=== PATIENT | male | born 1975 | race Two or more races ===

== ENCOUNTER 2020-07-11 15:00 | Emergency (ER) | payer MEDICAID, OTHER ==
[~2020-07-11] VITALS: Ht 195.6 cm; Wt 113.4 kg
[2020-07-11] MEDS ORDERED: ONDANSETRON HCL 4 MG/2 ML VIAL IV ONE (16:30)
[2020-07-11] MEDS ORDERED: ACETAMINOPHEN 325 MG TAB PO ONE (16:30)
[2020-07-11] MEDS ORDERED: SODIUM CHLORIDE 0.9% 1,000 ML IV ONE (16:30)
[2020-07-11] MEDS ORDERED: PANTOPRAZOLE 40 MG/10 ML VIAL INJ IV ONE (16:30)
[2020-07-11 17:21] LABS: Basophils # (auto) 0 10 ^3/uL (0-0.2); Basophils % (auto) 0.3 % (0.0-2.0); Eosinophils # (auto) 0 10 ^3/uL (0-0.8); Eosinophils % (auto) 0.2 % (0.0-7.0); Hemoglobin 18.3 g/dL (13.5-17.5); Lymphocytes # (auto) 1.4 10 ^3/uL (0.4-5.4); Lymphocytes % (auto) 27.6 % (10.0-50.0); Mean Corpuscular Hemoglobin 31.5 pg (28.0-32.0); Mean Corpuscular Hgb Conc. 35.2 g/dL (32.0-36.0); Mean Corpuscular Volume 89.4 fL (80.0-100.0); Monocytes # (auto) 0.5 10 ^3/uL (0-1.3); Monocytes % (auto) 9.8 % (0.0-12.0); Neutrophils # (auto) 3.2 10 ^3/uL (1.6-8.6); Neutrophils % (auto) 62.1 % (37.0-80.0); Nucleated Red Blood Cells % 0.3 %; Platelet Count (auto) 169 10^3/uL (140-450); Red Blood Cells 5.82 10^6/uL (4.5-5.90); Red Cell Distribution Width 12.7 % (11.8-14.3); White Blood Cell 5.2 10^3/uL (4.4-10.8)
[2020-07-11 17:34] LABS: Albumin 3.7 g/dL (3.4-5.0); Calcium 8.7 mg/dL (8.5-10.1); Magnesium 2.2 mg/dL (1.6-2.6)
[2020-07-11 17:35] LABS: BUN/Creatinine Ratio 7.1
[2020-07-11 17:39] LABS: Bilirubin, Total 0.6 mg/dL (0.2-1.0); Total Protein 7.7 g/dL (6.4-8.2)
[2020-07-11 18:27] LABS: Urine Bacteria NONE SEEN /hpf (None Seen); Urine Blood Negative /uL (Negative); Urine Specific Gravity 1.004 (1.001-1.035); Urine WBC 2 /hpf (0 - 3)
[2020-07-11] MEDS ORDERED: MORPHINE SULF INJ 2 MG/ML SYRINGE 1ML IV ONE (18:30)
[2020-07-11 18:37] LABS: Alcohol, Urine < 3.0 mg/dL (0-10); Amphetamine Screen, Urine POSITIVE (NEGATIVE); Barbiturate Scree,Urine NEGATIVE (NEGATIVE); Benzodiazephine Screen, Urine NEGATIVE (NEGATIVE); Cannabinoid Screen, Urine NEGATIVE (NEGATIVE); Cocaine Screen, Urine NEGATIVE (NEGATIVE); Phencyclidine Screen, Urine NEGATIVE (NEGATIVE)
[2020-07-11 18:44] LABS: Opiate Scree,Urine NEGATIVE (NEGATIVE)
[2020-07-11] MEDS ORDERED: DexAMETHasone 4 MG TAB PO ONE (19:30)
[2020-07-11] MEDS ORDERED: DOXYCYCLINE 100 MG TAB/CAP PO ONE (19:30)
[2020-07-11] MEDS ORDERED: ASCORBIC ACID 500 MG TAB PO ONE (19:30)
[2020-07-11 22:28] VITALS: BP 136/97
== END 2020-07-11 22:27 | disposition home or self-care (01) ==
LOC: ER 15:00
DX: U07.1 COVID-19 (principal); R03.0 Elevated blood-pressure reading, without diagnosis of hypertension; E86.0 Dehydration; F12.10 Cannabis abuse, uncomplicated; K76.0 Fatty (change of) liver, not elsewhere classified; F15.10 Other stimulant abuse, uncomplicated
CPT/HCPCS: 36415; 71045; 74176; 80053; 80307; 81001; 82150; 83690; 83735; 85025; 87426; 96361; 96374; 96375; 99285; C9113; J2270; J2405; J7030

== ENCOUNTER 2020-07-23 16:19 | Emergency (ER) | payer SELFPAY ==
[~2020-07-23] VITALS: Ht 195.6 cm; Wt 127.0 kg
[2020-07-23 16:31] VITALS: BP 128/84
== END 2020-07-23 17:10 | disposition left against medical advice (07) ==
LOC: ER 16:19
DX: U07.1 COVID-19 (principal); J12.89 Other viral pneumonia
CPT/HCPCS: 71045

== ENCOUNTER 2020-07-25 08:03 | Emergency (ER) | payer SELFPAY ==
[~2020-07-25] VITALS: Ht 195.6 cm; Wt 127.0 kg
[2020-07-25 08:21] VITALS: BP 147/99
== END 2020-07-25 13:31 | disposition left against medical advice (07) ==
LOC: ER 08:03
DX: R06.02 Shortness of breath (principal); Z53.21 Procedure and treatment not carried out due to patient leaving prior to being seen by health care provider
CPT/HCPCS: 71045

== ENCOUNTER 2021-01-03 21:39 | Emergency (ER) | payer MEDICAID, SELFPAY ==
[~2021-01-03] VITALS: Ht 195.6 cm; Wt 124.7 kg
[2021-01-03 22:20] LABS: Basophils # (auto) 0 10 ^3/uL (0-0.2); Basophils % (auto) 0.5 % (0.0-2.0); Eosinophils # (auto) 0.1 10 ^3/uL (0-0.8); Eosinophils % (auto) 2.4 % (0.0-7.0); Hematocrit 46.7 % (41.0-53.0); Hemoglobin 16.5 g/dL (13.5-17.5); Lymphocytes # (auto) 1.8 10 ^3/uL (0.4-5.4); Mean Corpuscular Hemoglobin 31.5 pg (28.0-32.0); Mean Corpuscular Hgb Conc. 35.3 g/dL (32.0-36.0); Monocytes # (auto) 0.5 10 ^3/uL (0-1.3); Monocytes % (auto) 8.3 % (0.0-12.0); Neutrophils # (auto) 3.5 10 ^3/uL (1.6-8.6); Neutrophils % (auto) 58.8 % (37.0-80.0); Nucleated Red Blood Cells % 0.3 %; Platelet Count (auto) 212 10^3/uL (140-450); Red Blood Cells 5.25 10^6/uL (4.5-5.90); Red Cell Distribution Width 13.6 % (11.8-14.3); White Blood Cell 5.9 10^3/uL (4.4-10.8)
[2021-01-03 22:37] LABS: Albumin 3.7 g/dL (3.4-5.0); Calcium 8.2 mg/dL (8.5-10.1)
[2021-01-03 22:42] LABS: BUN/Creatinine Ratio 14.3; Bilirubin, Total 0.4 mg/dL (0.2-1.0); Total Protein 7.2 g/dL (6.4-8.2)
[2021-01-03 22:46] LABS: INR 0.97 (0.9-1.15); Partial Thromboplastin Time 25.7 sec (23.0-31.2)
[2021-01-04 01:53] VITALS: BP 131/90
== END 2021-01-04 03:21 | disposition home or self-care (01) ==
LOC: ER 21:43
DX: S16.1XXA Strain of muscle, fascia and tendon at neck level, initial encounter (principal); R51.9 Headache, unspecified; F12.10 Cannabis abuse, uncomplicated; X58.XXXA Exposure to other specified factors, initial encounter; Y93.89 Activity, other specified; Y92.89 Other specified places as the place of occurrence of the external cause; Y99.8 Other external cause status
CPT/HCPCS: 36415; 70450; 80053; 83880; 85025; 85610; 85730; 93005

== ENCOUNTER 2022-07-12 18:52 | Emergency (ER) | payer SELFPAY ==
[~2022-07-12] VITALS: Ht 195.6 cm; Wt 127.3 kg
[2022-07-12 19:07] VITALS: BP 137/89
== END 2022-07-12 22:59 | disposition left against medical advice (07) ==
LOC: ER 18:52
DX: S51.812A Laceration without foreign body of left forearm, initial encounter (principal); Z53.21 Procedure and treatment not carried out due to patient leaving prior to being seen by health care provider; W11.XXXA Fall on and from ladder, initial encounter; Y93.89 Activity, other specified; Y92.89 Other specified places as the place of occurrence of the external cause; Y99.8 Other external cause status

== ENCOUNTER 2024-12-02 02:55 | Emergency (ER) | payer MEDICAID ==
[~2024-12-02] VITALS: Ht 195.6 cm; Wt 125.0 kg
--- NOTE | 2024-12-02 03:13 | ED.PDOC ---
History of Present Illness HPI Comments 48-year-old male who came to ER for back pains. Patient states he has been having lower back pains radiating down his right lower leg for the past month. Patient has taken pain medications, Xanax and alcohol with his offered no relief of the pain Chief Complaint: Back Pain Time Seen by MD: 03:13 Primary Care Provider: UNKNOWN Reviewed Notes: Filling Layer Up Notes Allergies: Coded Allergies: NO KNOWN ALLERGIES (Unverified , 07/11/20) Information Source: Patient Mode of Arrival: EMS Severity: Moderate Timing: Weeks Duration: Intermittent Past Medical History PAST MEDICAL HISTORY: Denies Surgical History: Denies all surgeries Family History Family History: Reviewed,noncontributory to illness Social History Smoker: Non-Smoker Alcohol: Occasionally Drugs: Marijuana Lives In: Home Constitutional: denies: chills, diaphoresis, fatigue, fever, malaise, sweats, weakness, others EENTM: denies: blurred vision, double vision, ear bleeding, ear discharge, ear drainage, ear pain, ear ringing, eye pain, eye redness, hearing loss, mouth pain, mouth swelling, nasal discharge, nose bleeding, nose congestion, nose pain, photophobia, tearing, throat pain, throat swelling, voice changes, others Respiratory: denies: cough, hemoptysis, orthopnea, SOB at rest, shortness of breath, SOB with excertion, stridor, wheezing, others Cardiovascular: denies: chest pain, dizzy spells, diaphoresis, Dyspnea on exertion, edema, irregular heart beat, left arm pain, lightheadedness, palpitations, PND, syncope, others Gastrointestinal: denies: abdomen distended, abdominal pain, blood streaked bowels, constipated, diarrhea, dysphagia, difficulty swallowing, hematemesis, melena, nausea, poor appetite, poor fluid intake, rectal bleeding, rectal pain, vomiting, others Genitourinary: denies: burning, dysuria, flank pain, frequency, hematuria, incontinence, penile discharge, penile sore, pain, testicle pain, testicle swelling, urgency, others Neurological: denies: dizziness, fainting, headache, left sided numbness, left sided weakness, numbness, paresthesia, pre-existing deficit, right sided numbness, right sided weakness, seizure, speech problems, tingling, tremors, weakness, others Musculoskeletal: reports: back pain, muscle pain (Right leg pain); denies: gout, joint pain, joint swelling, muscle stiffness, neck pain, others Integumetry: denies: bruises, change in color, change in hair/nails, dryness, laceration, lesions, lumps, rash, wounds, others Allergic/Immunocompromised: denies: Difficulty Healing, Frequent Infections, Hives, Itching, others Hematologic/Lymphatic: denies: anemia, blood clots, easy bleeding, easy bruising, swollen glands, others Endocrine: denies: excessive hunger, excessive sweating, excessive thirst, excessive urination, flushing, intolerance to cold, intolerance to heat, unexplained weight gain, unexplained weight loss, others Psychiatric: denies: anxiety, bipolar disorder, depression, hopeless, panic disorder, schizophrenia, sleepless, suicidal, others Physical Exam General Appearance: No Apparent Distress, Normal HEENT: Normal ENT Inspection, Pharynx Normal, TMs Normal Neck: Full Range of Motion, Non-Tender, Normal, Normal Inspection Respiratory: Chest Non-Tender, Lungs Clear, No Accessory Muscle Use, No Respiratory Distress, Normal Breath Sounds Cardiovascular: No Edema, No JVD, No Murmur, No Gallop, Normal Peripheral Pulses, Regular Rate/Rhythm Breast Exam: Deferred Gastrointestinal: No Organomegaly, Non Tender, No Pulsatile Mass, Normal Bowel Sounds, Soft Genitalia: Deferred Pelvic: Deferred Rectal: Deferred Extremities: No calf tenderness, Normal capillary refill, Normal inspection, Normal range of motion, Non-tender, No pedal edema Musculoskeletal : Apperance: Normal Neurologic: Alert, angiography technologist II-XII nml as Tested, No Motor Deficits, Normal Affect, Normal Mood, No Sensory Deficits Cerebellar Function: Normal Reflexes: Normal Skin: Dry, Normal Color, Warm Lymphatic: No Adenopathy Was a procedure done? Was a procedure done?: No Differential Dx Considerations may include: Musculoskeletal pain, sciatica X-Ray, Labs, Meds, VS Vital Signs Date Time Temp Pulse Resp B/P (MAP) Pulse Ox O2 Delivery O2 Flow Rate FiO2 12/02/24 04:00 97.7 102 22 135/89 (104) 94 97.7 12/02/24 04:00 102 Room Air* 0 21 12/02/24 03:06 97.7 73 22 140/102 (115) 98 Lab Test 12/02/24 03:39 Range/Units White Blood Count 8.2 4.4-10.8 10^3/uL Red Blood Count 5.38 4.5-5.90 10^6/uL Hemoglobin 16.0 13.5-17.5 g/dL Hematocrit 48.1 41.0-53.0 % Mean Corpuscular Volume 89.3 80.0-100.0 fL Mean Corpuscular Hemoglobin 29.8 28.0-32.0 pg Mean Corpuscular Hemoglobin Concent 33.3 32.0-36.0 g/dL Red Cell Distribution Width 13.2 11.8-14.3 % Platelet Count 293 140-450 10^3/uL Mean Platelet Volume 8.1 6.9-10.8 fL Neutrophils (%) (Auto) 63.1 37.0-80.0 % Lymphocytes (%) (Auto) 26.5 10.0-50.0 % Monocytes (%) (Auto) 7.7 0.0-12.0 % Eosinophils (%) (Auto) 1.7 0.0-7.0 % Basophils (%) (Auto) 1.0 0.0-2.0 % Neutrophils # (Auto) 5.2 1.6-8.6 10 ^3/uL Lymphocytes # (Auto) 2.2 0.4-5.4 10 ^3/uL Monocytes # (Auto) 0.6 0-1.3 10 ^3/uL Eosinophils # (Auto) 0.1 0-0.8 10 ^3/uL Basophils # (Auto) 0.1 0-0.2 10 ^3/uL Nucleated Red Blood Cells 0.1 % Sodium Level 137 136-145 mmol/L Potassium Level 4.3 3.5-5.1 mmol/L Chloride Level 105 98-107 mmol/L Carbon Dioxide Level 26 20-31 mmol/L Anion Gap 6 5-15 Blood Urea Nitrogen 12 9-23 mg/dL Creatinine 0.89 0.700-1.30 mg/dL Glomerular Filtration Rate Calc 104 >90 mL/min BUN/Creatinine Ratio 13.5 10.0-20.0 Serum Glucose 100 74-106 mg/dL Calcium Level 9.4 8.7-10.4 mg/dL Current Medications Medications (Trade) Dose Ordered Sig/Reagan Route Start Time Stop Time Status Last Admin Acetaminophen (Tylenol Tablet) 650 mg ONCE ONCE PO 12/02/24 03:30 12/02/24 03:31 DC 12/02/24 04:08 Ketorolac Tromethamine (Toradol Injection) 15 mg ONCE ONCE IM 12/02/24 03:30 12/02/24 03:31 DC 12/02/24 04:10 Cyclobenzaprine HCl (Flexeril Tablet) 10 mg ONCE ONCE PO 12/02/24 03:30 12/02/24 03:31 DC 12/02/24 04:08 Time of 1ST Reevaluation: 03:10 Reevaluation 1ST: Unchanged Patient Education/Counseling: Diagnosis, Treatment Family Education/Counseling: Need For Follow Up Departure 1 Departure Time of Disposition: 05:27 (Patient with worsening sciatica pain. Patient's workup was benign. We will discharge patient home with outpatient follow up) Impression: Primary Impression: Lumbar radiculopathy Disposition: HOME / SELF CARE / HOMELESS Condition: Stable Referrals: CACHORRO QUIROZ MD Additional Instructions: Your x-ray today benign. You likely have sciatica. This is inflammation of the nerve in your lower back.. You were referred to a back surgeon. Please call for an appointment. For pain you can take the followinam: Ibuprofen 400mg with food Noon: Acetaminophen 1000mg 4pm: Ibuprofen 400mg with food 8pm: Acetaminophen 1000mg You should follow up with your regular doctor within one week to ensure you are doing better. If your symptoms worsen or you have any other concerns then please return to the ER. e-Prescriptions Cyclobenzaprine Hcl (Cyclobenzaprine Hcl) 5 Mg Tab 1 TAB PO TID PRN for 5 Days, #15 TAB Prov: SHEILA SNOW MD 12/02/24 Discharged With: Self Critical Care Note Critical Care Time?: No Stability Stability form required: No Heart Score Heart Score: Heart Score Response (Comments) Value History N/A 0 EKG N/A 0 Age N/A 0 Risk Factors N/A 0 Troponin N/A 0 Total 0 I personally scribed for SHEILA SNOW MD ([email or web address]) on 12/02/24 at 03:13. Electronically submitted by Francis Perez ([email or web address]). SHEILA SNOW MD Dec 02, 2024 03:13
[2024-12-02 03:53] LABS: Basophils # (auto) 0.1 10 ^3/uL (0-0.2); Eosinophils # (auto) 0.1 10 ^3/uL (0-0.8); Eosinophils % (auto) 1.7 % (0.0-7.0); Hematocrit 48.1 % (41.0-53.0); Lymphocytes # (auto) 2.2 10 ^3/uL (0.4-5.4); Lymphocytes % (auto) 26.5 % (10.0-50.0); Mean Corpuscular Hemoglobin 29.8 pg (28.0-32.0); Mean Corpuscular Hgb Conc. 33.3 g/dL (32.0-36.0); Mean Corpuscular Volume 89.3 fL (80.0-100.0); Monocytes # (auto) 0.6 10 ^3/uL (0-1.3); Monocytes % (auto) 7.7 % (0.0-12.0); Neutrophils # (auto) 5.2 10 ^3/uL (1.6-8.6); Neutrophils % (auto) 63.1 % (37.0-80.0); Nucleated Red Blood Cells % 0.1 %; Platelet Count (auto) 293 10^3/uL (140-450); Red Blood Cells 5.38 10^6/uL (4.5-5.90); Red Cell Distribution Width 13.2 % (11.8-14.3); White Blood Cell 8.2 10^3/uL (4.4-10.8)
[2024-12-02 04:00] VITALS: BP 135/89; PULSE 102; RESP 22; TEMP 97.7; O2SAT 94
[2024-12-02 04:00] LABS: Chloride 105 mmol/L (98-107); Potassium 4.3 mmol/L (3.5-5.1); Sodium 137 mmol/L (136-145)
[2024-12-02 04:01] LABS: Anion Gap 6 (5-15); Carbon Dioxide 26 mmol/L (20-31)
[2024-12-02 04:02] LABS: Calcium 9.4 mg/dL (8.7-10.4)
[2024-12-02 04:06] LABS: BUN/Creatinine Ratio 13.5 (10.0-20.0); Blood Urea Nitrogen 12 mg/dL (9-23); Glucose 100 mg/dL (74-106)
[2024-12-02] MEDS: CYCLOBENZAPRINE HCL 10 MG TAB PO ONE (04:08)
[2024-12-02] MEDS: ACETAMINOPHEN 325 MG TAB PO ONE (04:08)
[2024-12-02] MEDS: KETOROLAC TROMETH 30 MG/ML 1ML VIAL IM ONE (04:10)
--- NOTE | 2024-12-02 05:24 | DVH ---
INDICATION: lower back pain COMPARISON: None TECHNIQUE: 3 views of the lumbar spine were obtained. FINDINGS: The lumbar vertebral alignment is normal. The intervertebral disc spaces are well-maintained. No significant facet arthropathy is noted. No acute fracture, vertebral compression deformity or aggressive osseous lesions. The paravertebral soft tissues are grossly unremarkable. IMPRESSION: 1. No acute fracture.
[2024-12-02] MEDS ORDERED: CYCL-837 PO (05:30)
[2024-12-02 05:38] LABS: Urine Bacteria None Seen /hpf (None Seen)
[2024-12-02 05:53] LABS: Urine Blood Negative /uL (Negative); Urine Clarity Clear (Clear); Urine Color Yellow (Yellow); Urine Mucus FEW (None Seen); Urine Protein, UAD TRACE (Negative); Urine Specific Gravity 1.035 (1.001-1.035); Urine Squamous Epithelial Cell None Seen /hpf (<5); Urine Urobilinogen Normal (Negative); Urine WBC 1 /HPF (0-3)
[2024-12-02 06:04] LABS: Barbiturate Scree,Urine Neg (NEGATIVE)
[2024-12-02 06:06] LABS: Cannabinoid Screen, Urine Pos (NEGATIVE)
[2024-12-02 06:21] LABS: Amphetamine Screen, Urine Pos (NEGATIVE); Benzodiazephine Screen, Urine Pos (NEGATIVE); Cocaine Screen, Urine Neg (NEGATIVE); Opiate Scree,Urine Neg (NEGATIVE); Phencyclidine Screen, Urine Neg (NEGATIVE)
== END 2024-12-02 05:43 | disposition home or self-care (01) ==
LOC: EDBD 02:55 → ER 02:59
DX: M54.16 Radiculopathy, lumbar region (principal)
CPT/HCPCS: 36415; 72100; 80048; 80307; 81001; 85025; 96372; 99284; J1885

== ENCOUNTER 2024-12-11 17:05 | Inpatient (IN) | payer MEDICAID ==
[~2024-12-11] VITALS: Ht 195.6 cm; Wt 120.6 kg
[~2024-12-11 17:05] MED LIST: CYCL-837 PO
--- NOTE | 2024-12-11 17:24 | ECG ---
[facility] Test Date: 2024-12-11 Test Time: 17:22:33 Pat Name: APOLINAR PAYNE Department: ER Room: 0236T Gender: M [employer] Person: TERESA : 1975 Requested By: TANISHA ADDISON Order Number: [id number] Reading MD: Quinton Ayers Measurements Intervals Cash Rate: 129 P: 75 DE: 123 QRS: 50 QRSD: 82 T: 23 QT: 309 QTc: 453 Interpretive Statements Sinus tachycardia Baseline wander in lead(s) I,II,III,aVR,aVL,aVF Electronically Signed On 12-17-2024 16:59:09 PST by Quinton Ayers Please click the below link to view image of tracing.
[2024-12-11 17:39] VITALS: PULSE 130; RESP 22; O2SAT 96
--- NOTE | 2024-12-11 17:43 | ED.PDOC ---
Musculoskeletal HPI Comments 49 y.o male presents to the ED for a chief complaint of left knee pain and fever that started 3 days ago. Patient presents with erythema around knee cap. Patient reports pain is constant, non radiating and has no alleviating or precipitating factors. Patient denies any recent falls, trauma to pain site, IV drug use, chil ls, laceration, numbness or tingling sensation. Patient has been taking Ibuprofen, last dose was yesterday but has no relief. He denies any medical history or allergies. Chief Complaint: Lower Extremity Time Seen by MD: 17:21 Primary Care Provider: N/A Reviewed Notes: Nurses Notes, Medications, Allergies Allergies: Coded Allergies: NO KNOWN ALLERGIES (Unverified , 07/11/20) Home Meds Active Scripts Cyclobenzaprine Hcl (Cyclobenzaprine Hcl) 5 Mg Tab, 1 TAB PO TID PRN for 5 Days, #15 TAB Prov:SHEILA SNOW MD 12/02/24 Information Source: Patient Mode of Arrival: Ambulatory Location: Left Extremity Location: Knee Timing: Days (3) Severity: Moderate Able to Move Extremity: Yes Bear Weight: Limited Pain: Moderate Mechanism: None Circumstances: Spontaneous Onset of Symptoms: Spontaneous Symptoms: Pain, Erythema DVT Risk Factors: NONE Associated signs and symptoms: Knee pain Past Medical History Past Medical History (Other): Right-sided sciatic nerve pain Surgical History: Denies all surgeries Family History Family History: Reviewed,noncontributory to illness Social History Smoker: Non-Smoker Alcohol: Occasionally Drugs: Marijuana Lives In: Home Constitutional: denies: chills, diaphoresis, fatigue, fever, malaise, sweats, weakness, others EENTM: denies: blurred vision, double vision, ear bleeding, ear discharge, ear drainage, ear pain, ear ringing, eye pain, eye redness, hearing loss, mouth pain, mouth swelling, nasal discharge, nose bleeding, nose congestion, nose pain, photophobia, tearing, throat pain, throat swelling, voice changes, others Respiratory: denies: cough, hemoptysis, orthopnea, SOB at rest, shortness of breath, SOB with excertion, stridor, wheezing, others Cardiovascular: denies: chest pain, dizzy spells, diaphoresis, Dyspnea on exertion, edema, irregular heart beat, left arm pain, lightheadedness, palpitations, PND, syncope, others Gastrointestinal: denies: abdomen distended, abdominal pain, blood streaked bowels, constipated, diarrhea, dysphagia, difficulty swallowing, hematemesis, melena, nausea, poor appetite, poor fluid intake, rectal bleeding, rectal pain, vomiting, others Genitourinary: denies: burning, dysuria, flank pain, frequency, hematuria, incontinence, penile discharge, penile sore, pain, testicle pain, testicle swelling, urgency, others Neurological: denies: dizziness, fainting, headache, left sided numbness, left sided weakness, numbness, paresthesia, pre-existing deficit, right sided numbness, right sided weakness, seizure, speech problems, tingling, tremors, wea kness, others Musculoskeletal: reports: others (left knee pain ); denies: back pain, gout, joint pain, joint swelling, muscle pain, muscle stiffness, neck pain Integumetry: reports: others (left knee erythema ); denies: bruises, change in color, change in hair/nails, dryness, laceration, lesions, lumps, rash, wounds Allergic/Immunocompromised: denies: Difficulty Healing, Frequent Infections, Hives, Itching, others Hematologic/Lymphatic: denies: anemia, blood clots, easy bleeding, easy bruising, swollen glands, others Endocrine: denies: excessive hunger, excessive sweating, excessive thirst, excessive urination, flushing, intolerance to cold, intolerance to heat, unexplained weight gain, unexplained weight loss, others Psychiatric: denies: anxiety, bipolar disorder, depression, hopeless, panic disorder, schizophrenia, sleepless, suicidal, others All Other Systems: Reviewed and Negative Physical Exam General Appearance: Moderate Distress HEENT: Other (Pupils symmetric, face symmetric, moist mucous membranes.) Neck: Full Range of Motion, Normal Inspection Respiratory: Lungs Clear, No Accessory Muscle Use, No Respiratory Distress, Normal Breath Sounds Cardiovascular: No Edema, No JVD, Tachycardia Breast Exam: Deferred Gastrointestinal: Non Tender, Soft Genitalia: Deferred Pelvic: Deferred Rectal: Deferred Extremities: No pedal edema, Swelling, Tender, Other (Left knee prepatellar erythema, tenderness and mild soft tissue swelling. No fluctuance or d ischarge.) Neurologic: Alert (Oriented x4), Normal Affect, Normal Mood, Other (Moves all extremities. No gross focal deficit.) Cerebellar Function: NOT DONE Reflexes: NOT DONE Skin: Dry, Normal Color, Warm Lymphatic: NOT DONE Was a procedure done? Was a procedure done?: No EKG EKG : Comments Sinus tach, rate 129, normal intervals, normal axis, normal QRS, nonspecific T changes. Baseline wander. Differential Diagnosis EXT Differential Diagnosis: Cellulitis, Sprain, Gout, Contusion, Strain, Rheumatoid, Septic, Arthritis, Bursitis X-Ray, Labs, Meds, VS Vital Signs Date Time Temp Pulse Resp B/P (MAP) Pulse Ox O2 Delivery O2 Flow Rate FiO2 12/11/24 17:39 130 22 96 Room Air* 0 21 12/11/24 17:22 129 12/11/24 17:18 98.9 133 18 100/65 (77) 96 Lab Test 12/11/24 22:01 12/11/24 20:28 12/11/24 18:44 12/11/24 17:30 Range/Units Urine Color Yellow Yellow Urine Clarity Turbid H Clear Urine pH 5.5 5.0-9.0 Urine Specific [place] 1.038 H 1.001-1.035 Urine Protein 1+ H Negative Urine Ketones Trace Negative Urine Blood 2+ H Negative /uL Urine Nitrite Negative Negative Urine Bilirubin Negative Negative Urine Urobilinogen 4 H Negative mg/dL Urine Leukocyte Esterase Trace Negative /uL Urine RBC 81 0 - 3 /hpf Urine Microscopic WBC 10 H 0-3 /HPF Urine Squamous Epithelial Cells Few <5 /hpf Urine Bacteria Few H None Seen /hpf Urine Hyaline Casts Few 0 - 2 /lpf Urine Glucose Normal Normal mg/dL Urine Opiates Screen Pos NEGATIVE Urine Fentanyl Screen Neg NEGATIVE Urine Barbiturates Screen Neg NEGATIVE Urine Phencyclidine Screen Neg NEGATIVE Urine Amphetamines Screen Pos NEGATIVE Urine Benzodiazepines Screen Neg NEGATIVE Urine Cocaine Screen Neg NEGATIVE Urine Cannabinoids Screen Pos NEGATIVE Troponin I High Sensitivity 166 *H 131 *H 137 *H </=54 ng/L White Blood Count 12.9 H 4.4-10.8 10^3/uL Red Blood Count 4.75 4.5-5.90 10^6/uL Hemoglobin 14.4 13.5-17.5 g/dL Hematocrit 41.0 41.0-53.0 % Mean Corpuscular Volume 86.3 80.0-100.0 fL Mean Corpuscular Hemoglobin 30.4 28.0-32.0 pg Mean Corpuscular Hemoglobin Concent 35.2 32.0-36.0 g/dL Red Cell Distribution Width 12.9 11.8-14.3 % Platelet Count 365 140-450 10^3/uL Mean Platelet Volume 8.1 6.9-10.8 fL Neutrophils (%) (Auto) 82.5 H 37.0-80.0 % Lymphocytes (%) (Auto) 9.7 L 10.0-50.0 % Monocytes (%) (Auto) 6.8 0.0-12.0 % Eosinophils (%) (Auto) 0.2 0.0-7.0 % Basophils (%) (Auto) 0.8 0.0-2.0 % Neutrophils # (Auto) 10.7 H 1.6-8.6 10 ^3/uL Lymphocytes # (Auto) 1.3 0.4-5.4 10 ^3/uL Monocytes # (Auto) 0.9 0-1.3 10 ^3/uL Eosinophils # (Auto) 0 0-0.8 10 ^3/uL Basophils # (Auto) 0.1 0-0.2 10 ^3/uL Nucleated Red Blood Cells 0.0 % Sodium Level 132 L 136-145 mmol/L Potassium Level 3.8 3.5-5.1 mmol/L Chloride Level 97 L 98-107 mmol/L Carbon Dioxide Level 24 20-31 mmol/L Anion Gap 11 5-15 Blood Urea Nitrogen 23 9-23 mg/dL Creatinine 1.31 H 0.700-1.30 mg/dL Glomerular Filtration Rate Calc 66 >90 mL/min BUN/Creatinine Ratio 17.6 10.0-20.0 Serum Glucose 99 74-106 mg/dL Lactic Acid Level 1.6 0.4-2.0 mmol/L Calcium Level 8.5 L 8.7-10.4 mg/dL B-Type Natriuretic Peptide 5.33 0-100 pg/mL Plasma/Serum Blood Alcohol < 3.0 <10 mg/dL Current Medications Medications (Trade) Dose Ordered Sig/Reagan Route Start Time Stop Time Status Last Admin Sodium Chloride 2,000 ml @ 1,000 mls/hr Q2H ONCE IV 12/11/24 17:30 12/11/24 19:29 DC 12/11/24 18:04 Ketorolac Tromethamine (Toradol Injection) 30 mg ONCE ONCE IV 12/11/24 17:30 12/11/24 17:31 DC 12/11/24 18:03 Acetaminophen/ Hydrocodone Bitart (Or[place] 5/325MG Tab) 2 tab ONCE ONCE PO 12/11/24 17:30 12/11/24 17:31 DC 12/11/24 18:03 Piperacillin Sod/ Tazobactam Sod 100 ml @ 100 mls/hr ONCE ONCE IV 12/11/24 17:30 12/11/24 18:29 DC 12/11/24 18:04 [place] [address] Ph: [phone] DIAGNOSTIC IMAGING Diagnostic Imaging Report : [id number] Signed PATIENT: APOLINAR PAYNE ACCT: [id number] UNIT: [id number] : 1975 LOC: ER ROOM / BED: / AGE / SEX: 49 / M ADM STATUS: REG ER SERVICE 26 ORDERING PHYSICIAN: TANISHA ALVARADO MD PROCEDURE(s): CXRP - CHEST PORTABLE REASON: fever ORDER NUMBER(s): [id number], ACCESSION NUMBER(s): [id number] CHEST RADIOGRAPH Indication: fever Technique: Single frontal view of the chest was obtained Comparison: CHEST PORTABLE on DOS: 07/25/20, CHEST PORTABLE on DOS: 07/23/20, CHEST XRAY 1 VIEW on DOS: 07/11/20 FINDINGS: Lines and Tubes: None Lungs: 3 mass lesions in the left chest. Findings suggest pulmonary malignancy with metastasis Pleura: No effusion. No pneumothorax. Cardiomediastinal contours: Unremarkable Bones: No acute osseous abnormality. IMPRESSION: 1. 7 cm round mass left lower lung field with 3 additional masses noted findings consistent with pulmonary malignancy and metastatic disease. ATED BY: STACEY MARSHALL Jr., DO DICTATED DATE/TIME: 12/11/241756 SIGNED BY: STACEY MARSHALL Jr., SIGNED DATE/TIME: 12/11/241756 CC: [place] [address] Ph: [phone] DIAGNOSTIC IMAGING Diagnostic Imaging Report : [id number] Signed PATIENT: APOLINAR PAYNE ACCT: [id number] UNIT: [id number] : 1975 LOC: ER ROOM / BED: / AGE / SEX: 49 / M ADM STATUS: REG ER SERVICE 1727 ORDERING PHYSICIAN: TANISHA ALVARADO MD PROCEDURE(s): LKNE3 - L KNEE 3V XRAY REASON: L knee pain ORDER NUMBER(s): [id number], ACCESSION NUMBER(s): [id number] CLINICAL INDICATION: L knee pain TECHNIQUE: 3 radiographic views of the left knee were obtained. Comparison: None FINDINGS/IMPRESSION: There is no evidence of acute fracture or dislocation. The visualized joint space is well maintained. The alignment is anatomical. There is no radiopaque foreign body. ATED BY: STACEY MARSHALL Jr., DO DICTATED DATE/TIME: 12/11/241803 SIGNED BY: STACEY MARSHALL Jr., SIGNED DATE/TIME: 12/11/241803 CC: X-Ray, Labs, Meds, VS Comment 49-year-old male with a history of sciatic nerve pain on the right complaining of fever and left knee pain for the last 3 days. Vitals remarkable for heart rate 133 Exam remarkable for left knee prepatellar erythema, mild soft tissue swelling and tenderness Rhythm strip independently interpreted by me: Sinus tach, rate 129, no ectopy. Chest x-ray: IMPRESSION: 1. 7 cm round mass left lower lung field with 3 additional masses noted findings consistent with pulmonary malignancy and metastatic disease. Left knee x-ray: Unremarkable CT left knee results pending CBC remarkable for WBC 12.9, metabolic panel remarkable for sodium 132, chloride 97, creatinine 1.31, BNP normal, lactate normal, serial troponins 137, 131 and 166 UA abnormal consistent with UTI. Urine drug screen positive for opiates, amphetamines and cannabinoids Patient treated with the following in the ED: 2 L 0.9 normal saline IV bolus, Toradol 30 mg IV, [place] 5/325 mg 2 tablets p.o., Zosyn 4.5 g IV, aspirin 325 mg p.o. On re-evaluation, patient still has mild tachycardia. Other vital signs are stable and pain has improved. Plan is to admit the patient for IV antibiotics, serial troponins and Cardiology evaluation, as well as further evaluation of the abnormal chest x-ray findings. Case discussed with JADA Montana, who requested further imaging with left knee CT. CTA chest was considered to rule out PE, however patient's creatinine is elevated. Plan is to continue hydrating the patient, repeat metabolic panel to see if creatinine improves so patient may then undergo CT angio chest. Alternatively, if creatinine does not improve, patient may undergo V/Q scan in the morning to rule out PE. Time of 1ST Reevaluation: 17:40 Reevaluation 1ST: Unchanged Patient Education/Counseling: Diagnosis, Treatment, Prognosis Family Education/Counseling: No Family Present Departure 1 Departure Time of Disposition: 22:30 Impression: Primary Impression: Cellulitis of left knee Additional Impressions: Tachycardia Non-STEMI (non-ST elevated myocardial infarction) Amphetamine abuse Mass of left lung Disposition: ADMITTED INPATIENT Admit to: [facility] Condition: Guarded Critical Care Note Critical Care Time?: Yes (35 min-critical care time only) Critical care comment: Critical care time including multiple bedside re-evaluations, review of lab and imaging studies, and discussion of the case with the admitting provider. Patient is high risk for hemodynamic decompensation. Stability Stability form required: No Heart Score Heart Score: Heart Score Response (Comments) Value History N/A 0 EKG N/A 0 Age N/A 0 Risk Factors N/A 0 Troponin N/A 0 Total 0 I personally scribed for TANISHA ALVARADO MD ([facility] on 12/11/24 at 17:43. Electronically submitted by Snehal Cuello ([facility]). I personally scribed for TANISHA ALVARADO MD ([facility]) on 12/11/24 at 19:47. Electronically submitted by Snehal Cuello ([facility]). TANISHA ALVARADO MD Dec 11, 2024 17:43
--- NOTE | 2024-12-11 17:59 | DVH ---
CHEST RADIOGRAPH Indication: fever Technique: Single frontal view of the chest was obtained Comparison: CHEST PORTABLE on DOS: 07/25/20, CHEST PORTABLE on DOS: 07/23/20, CHEST XRAY 1 VIEW on DOS: 07/11/20 FINDINGS: Lines and Tubes: None Lungs: 3 mass lesions in the left chest. Findings suggest pulmonary malignancy with metastasis Pleura: No effusion. No pneumothorax. Cardiomediastinal contours: Unremarkable Bones: No acute osseous abnormality. IMPRESSION: 1. 7 cm round mass left lower lung field with 3 additional masses noted findings consistent with pulm onary malignancy and metastatic disease.
[2024-12-11 18:03] LABS: Basophils # (auto) 0.1 10 ^3/uL (0-0.2); Basophils % (auto) 0.8 % (0.0-2.0); Eosinophils # (auto) 0 10 ^3/uL (0-0.8); Eosinophils % (auto) 0.2 % (0.0-7.0); Hemoglobin 14.4 g/dL (13.5-17.5); Lymphocytes # (auto) 1.3 10 ^3/uL (0.4-5.4); Lymphocytes % (auto) 9.7 % (10.0-50.0); Mean Corpuscular Hemoglobin 30.4 pg (28.0-32.0); Mean Corpuscular Hgb Conc. 35.2 g/dL (32.0-36.0); Mean Corpuscular Volume 86.3 fL (80.0-100.0); Monocytes # (auto) 0.9 10 ^3/uL (0-1.3); Monocytes % (auto) 6.8 % (0.0-12.0); Neutrophils # (auto) 10.7 10 ^3/uL (1.6-8.6); Neutrophils % (auto) 82.5 % (37.0-80.0); Platelet Count (auto) 365 10^3/uL (140-450); Red Blood Cells 4.75 10^6/uL (4.5-5.90); Red Cell Distribution Width 12.9 % (11.8-14.3); White Blood Cell 12.9 10^3/uL (4.4-10.8)
[2024-12-11] MEDS: KETOROLAC TROMETH 30 MG/ML 1ML VIAL IV ONE (18:03)
[2024-12-11] MEDS: HYDROcodone-ACET 5/325MG TAB PO ONE (18:03)
[2024-12-11 18:04] LABS: Chloride 97 mmol/L (98-107); Potassium 3.8 mmol/L (3.5-5.1); Sodium 132 mmol/L (136-145)
[2024-12-11] MEDS: PIPERACILLIN-TAZO 4.5GM 100 ML IV ONE (18:04)
[2024-12-11] MEDS: SODIUM CHLORIDE 0.9% 2,000 ML IV ONE (18:04)
[2024-12-11 18:05] LABS: Anion Gap 11 (5-15); Carbon Dioxide 24 mmol/L (20-31)
[2024-12-11 18:06] LABS: Calcium 8.5 mg/dL (8.7-10.4)
--- NOTE | 2024-12-11 18:06 | DVH ---
CLINICAL INDICATION: L knee pain TECHNIQUE: 3 radiographic views of the left knee were obtained. Comparison: None FINDINGS/IMPRESSION: There is no evidence of acute fracture or dislocation. The visualized joint space is well maintained. The alignment is anatomical. There is no radiopaque foreign body.
[2024-12-11 18:10] LABS: BUN/Creatinine Ratio 17.6 (10.0-20.0); Blood Urea Nitrogen 23 mg/dL (9-23); Glucose 99 mg/dL (74-106)
[2024-12-11 18:18] LABS: Blood Alcohol < 3.0 mg/dL (<10)
[2024-12-11 22:34] LABS: Urine Bacteria FEW /hpf (None Seen); Urine Blood 2+ /uL (Negative); Urine Clarity Turbid (Clear); Urine Color Yellow (Yellow); Urine Hyaline Cast FEW /lpf (0 - 2); Urine Protein, UAD 1+ (Negative); Urine Specific Gravity 1.038 (1.001-1.035); Urine Squamous Epithelial Cell FEW /hpf (<5); Urine Urobilinogen 4 mg/dL (Negative); Urine WBC 10 /HPF (0-3); Urine pH 5.5 (5.0-9.0)
[2024-12-11 22:43] LABS: Barbiturate Scree,Urine Neg (NEGATIVE); Benzodiazephine Screen, Urine Neg (NEGATIVE); Cannabinoid Screen, Urine Pos (NEGATIVE); Opiate Scree,Urine Pos (NEGATIVE)
[2024-12-11 22:44] LABS: Amphetamine Screen, Urine Pos (NEGATIVE); Cocaine Screen, Urine Neg (NEGATIVE); Phencyclidine Screen, Urine Neg (NEGATIVE)
--- NOTE | 2024-12-11 23:24 | DVH ---
EXAM: CT CT L KNEE WO CONTRAST INDICATION: cellulitis Exam Date: 12/11/2024 10:37 PM COMPARISON: None TECHNIQUE: CT of the left knee without IV contrast. RADIATION DOSE: CTDIvol: 8.21 mGy, DLP: 370.78 mGy*cm Findings/ IMPRESSION: No acute fracture or dislocation. No destructive osseous lesions. Prepatellar soft tissue attenuation which may represent edema versus cellulitis / phlegmon in the correct clinical setting. No focal flu id collection to suggest abscess.
[2024-12-11] MEDS: SODIUM CHLORIDE 0.9% 1,000 ML IV ONE (23:25)
[2024-12-11] MEDS: ASPirin 325 MG TAB PO ONE (23:25)
[2024-12-11] MEDS ORDERED: MORPHINE SULFATE INJ 2 MG/ml SYRG IV PRN (23:45)
[2024-12-11] MEDS ORDERED: ACETAMINOPHEN 325 MG TAB PO PRN (23:45)
[2024-12-11] MEDS ORDERED: ONDANSETRON HCL 4 MG/2 ML VIAL IV PRN (23:45)
[2024-12-11] MEDS: SODIUM CHLORIDE 0.9% 1,000 ML IV SCH (23:45)
[2024-12-11] MEDS ORDERED: DOCUSATE SOD 100 MG CAP PO PRN (23:45)
[2024-12-11] MEDS ORDERED: NITROGLYCERIN 0.4 MG SL TAB SL PRN (23:45)
[2024-12-12] VITALS (11 sets, daily range): BP systolic 90–119; BP diastolic 51–76; PULSE 69–120; RESP 16–20; TEMP 97.1–101.1; O2SAT 92–98
[2024-12-12] MEDS: HYDROcodone-ACET 5/325MG TAB PO PRN (00:07)
--- NOTE | 2024-12-12 00:56 | DVHHP2 ---
LEAH MORALEZ PRINCIPAL CLERK TYPIST 12/12/24 0056: History of Present Illness Reason for Visit: Left knee pain redness History of Present Illness 49-year-old male without any pertinent medical history presents with complaints of redness and pain to the left knee x3 days. Patient endorsed a fall. Patient denies fevers, chills, nausea, vomiting, shortness of breath , IV drug use, sustained injury to the knees. During the emergency department evaluation troponins were elevated 137/131/166. While in the emergency department patient was found to be consistently tachycardic in the 130s. Found to be positive for methamphetamines. CXR was also remarkable for multiple lung masses. Smoke: No ALCOHOL: occassional Drugs: None (Methamphetamine), Marijuana Lives: Other Review of Systems Constitutional: No: Fever, Chills, Sweats, Weakness, Malaise, Other Eyes: No: Pain, Vision change, Conjunctivae inflammation, Eyelid inflammation, Other, Redness ENT: No: Ear pain, Ear discharge, Nose pain, Nose discharge, Nose congestion, Mouth pain, Mouth swelling, Throat pain, Throat swelling, Other Respiratory: No: Cough, Dry, Shortness of breath, SOB with excertion, Wheezing, Hemoptysis, Pleuritic Pain, Sputum, Wheezing, Other Cardiovascular: No: Chest Pain, Palpitations, Orthopnea, Paroxysmal Noc. Dyspnea, Edema, Lt Headedness, Other Gastrointestinal: No: Nausea, Vomiting, Abdominal Pain, Diarrhea, Constipation, Melena, Hematochezia, Other Genitourinary: No Dysuria, No Frequency, No Incontinence, No Hematuria, No Retention, No Other Musculoskeletal: leg pain; No: other, neck pain, shoulder pain, arm pain, back pain, hand pain, foot pain Skin: Other (Redness to left knee); No: Rash, Lesions, Jaundice, Bruising Neurological: No: Weakness, Numbness, Incoordination, Change in speech, Confu evelia, Seizures, Other Allergies: Coded Allergies: NO KNOWN ALLERGIES (Unverified , 07/11/20) Medications Current Medications Medications Dose Ordered Sig/Reagan Route Start Time Stop Time Status Last Admin Dose Admin Sodium Chloride 1,000 ml @ 100 mls/hr Q10H IV 12/11/24 23:45 12/12/24 19:44 Docusate Sodium 100 mg BIDPRN PRN PO 12/11/24 23:45 Acetaminophen 650 mg Q6HP PRN PO 12/11/24 23:45 Acetaminophen/ Hydrocodone Bitart 1 tab Q6HP PRN PO 12/11/24 23:45 12/12/24 00:07 1 TAB Ondansetron HCl 4 mg Q4HP PRN IV 12/11/24 23:45 Enoxaparin Sodium 40 mg DAILY SC 12/12/24 10:00 Nitroglycerin 0.4 mg Q5MINP PRN SL 12/11/24 23:45 Morphine Sulfate 2 mg Q30M PRN IV 12/11/24 23:45 Piperacillin Sod/ Tazobactam Sod 100 ml @ 100 mls/hr Q8HR IV 12/12/24 02:00 Aspirin 81 mg DAILY PO 12/12/24 10:00 Exam Vital Signs Vital Signs Date Time Temp Pulse Resp B/P (MAP) Pulse Ox O2 Delivery O2 Flow Rate FiO2 12/11/24 23:19 97.5 95 20 95/54 (68) 96 97.5 12/11/24 17:39 Room Air* 0 21 General Appearance: Alert, Oriented X3, Cooperative, mild distress HEENT: Atraumatic, PERRLA, EOMI Respiratory: Clear to auscultation, Normal air movement Cardiovascular: Regular rate (Sinus tachycardia), Normal S1, Normal S2 Abdominal: Normal bowel sounds, Soft, No tenderness Extremities: No clubbing, No cyanosis, No edema, Normal pulses, Other (Left knee round erythematous spot. Warmth to palpation) Neuro: Normal speech, Strength at 5/5 X4 ext Psych/Mental Status: Mental status NL, Mood NL Labs/Xrays Labs Test 12/11/24 22:01 12/11/24 20:28 12/11/24 17:30 Range/Units Urine Color Yellow Yellow Urine Clarity Turbid H Clear Urine pH 5.5 5.0-9.0 Urine Specific [place] 1.038 H 1.001-1.035 Urine Protein 1+ H Negative Urine Ketones Trace Negative Urine Blood 2+ H Negative /uL Urine Nitrite Negative Negative Urine Bilirubin Negative Negative Urine Urobilinogen 4 H Negative mg/dL Urine Leukocyte Esterase Trace Negative /uL Urine RBC 81 0 - 3 /hpf Urine Microscopic WBC 10 H 0-3 /HPF Urine Squamous Epithelial Cells Few <5 /hpf Urine Bacteria Few H None Seen /hpf Urine Hyaline Casts Few 0 - 2 /lpf Urine Glucose Normal Normal mg/dL Urine Opiates Screen Pos NEGATIVE Urine Fentanyl Screen Neg NEGATIVE Urine Barbiturates Screen Neg NEGATIVE Urine Phencyclidine Screen Neg NEGATIVE Urine Amphetamines Screen Pos NEGATIVE Urine Benzodiazepines Screen Neg NEGATIVE Urine Cocaine Screen Neg NEGATIVE Urine Cannabinoids Screen Pos NEGATIVE Troponin I High Sensitivity 166 *H </=54 ng/L White Blood Count 12.9 H 4.4-10.8 10^3/uL Red Blood Count 4.75 4.5-5.90 10^6/uL Hemoglobin 14.4 13.5-17.5 g/dL Hematocrit 41.0 41.0-53.0 % Mean Corpuscular Volume 86.3 80.0-100.0 fL Mean Corpuscular Hemoglobin 30.4 28.0-32.0 pg Mean Corpuscular Hemoglobin Concent 35.2 32.0-36.0 g/dL Red Cell Distribution Width 12.9 11.8-14.3 % Platelet Count 365 140-450 10^3/uL Mean Platelet Volume 8.1 6.9-10.8 fL Neutrophils (%) (Auto) 82.5 H 37.0-80.0 % Lymphocytes (%) (Auto) 9.7 L 10.0-50.0 % Monocytes (%) (Auto) 6.8 0.0-12.0 % Eosinophils (%) (Auto) 0.2 0.0-7.0 % Basophils (%) (Auto) 0.8 0.0-2.0 % Neutrophils # (Auto) 10.7 H 1.6-8.6 10 ^3/uL Lymphocytes # (Auto) 1.3 0.4-5.4 10 ^3/uL Monocytes # (Auto) 0.9 0-1.3 10 ^3/uL Eosinophils # (Auto) 0 0-0.8 10 ^3/uL Basophils # (Auto) 0.1 0-0.2 10 ^3/uL Nucleated Red Blood Cells 0.0 % Sodium Level 132 L 136-145 mmol/L Potassium Level 3.8 3.5-5.1 mmol/L Chloride Level 97 L 98-107 mmol/L Carbon Dioxide Level 24 20-31 mmol/L Anion Gap 11 5-15 Blood Urea Nitrogen 23 9-23 mg/dL Creatinine 1.31 H 0.700-1.30 mg/dL Glomerular Filtration Rate Calc 66 >90 mL/min BUN/Creatinine Ratio 17.6 10.0-20.0 Serum Glucose 99 74-106 mg/dL Lactic Acid Level 1.6 0.4-2.0 mmol/L Calcium Level 8.5 L 8.7-10.4 mg/dL B-Type Natriuretic Peptide 5.33 0-100 pg/mL Plasma/Serum Blood Alcohol < 3.0 <10 mg/dL Assessment/Plan Assessment/Plan Elevated troponin Multiple Left lung mass Let knee cellulitis Methamphetamine abuse Plan Admit telemetry Cardiology consult. Echocardiogram. Daily aspirin. Serial troponin. Pulmonology consult. Bronchodilators. As needed supplemental oxygen to maintain oxygen saturation greater than 93%. CT chest. Infectious disease consult. Blood cultures pending. IV ABX IVF Social service consult GI ppx pepcid / DVT ppx lovenox Plan discussed with: Patient My Orders Orders - LEAH MORALEZ NP Procedure Category Date Status Time Admit ADMIT 12/11/24 Transmitted 23:39 Code Status CODE 12/11/24 Transmitted 23:39 Vital Signs ABHI 12/11/24 In Process 23:39 Review Orders With ABHI 12/11/24 In Process Adm.Md 23:39 Encourage Activity As ABHI 12/11/24 In Process Tolerate 23:39 Regular Diet DIET 12/12/24 Transmitted Breakfast Sodium Chloride 0.9% PHA 12/11/24 In Process 23:45 Oxygen By Face Mask RT 12/11/24 Transmitted 23:39 Docusate Sodium PHA 12/11/24 In Process Capsule (Colace 23:45 Acetaminophen Tablet PHA 12/11/24 In Process (Tylenol Tablet) 23:45 Notify Md Of Changes ABHI 12/11/24 In Process From Base 23:39 Advance Directive ABHI 12/11/24 In Process 23:39 Echo 2d Mode Cardiac US 12/11/24 Logged DOP 23:39 Basic Metabolic Panel LAB 12/12/24 Logged 05:00 Basic Metabolic Panel LAB 12/13/24 Verified 05:00 Basic Metabolic Panel LAB 12/14/24 Verified 05:00 Basic Metabolic Panel LAB 12/15/24 Verified 05:00 Complete Blood Count LAB 12/12/24 Logged 05:00 Complete Blood Count LAB 12/13/24 Verified 05:00 Complete Blood Count LAB 12/14/24 Verified 05:00 Complete Blood Count LAB 12/15/24 Verified 05:00 Patient Condition ORDERS 12/11/24 Transmitted 23:39 Allergies ABHI 12/11/24 In Process 23:39 Hydrocodone-Acet PHA 12/11/24 In Process 5/325mg Tab ([place] 23:45 Ondansetron Hcl PHA 12/11/24 In Process (Zofran) 23:45 Enoxaparin Sodium PHA 12/12/24 In Process (Lovenox) 10:00 Sequential ABHI 12/11/24 In Process Compression Device Nitroglycerin PHA 12/11/24 In Process Sublingual (Ntrostat 23:45 Morphine Sulfate PHA 12/11/24 In Process Injection 23:45 Stat Ekg For Chest ABHI 12/11/24 In Process Pain 23:39 Notify Md Of Changes ABHI 12/11/24 In Process From Base 23:39 Roof [employer] For ABHI 12/11/24 In Process 24 Hours 23:39 Emergency Dysrhythmia ABHI 12/11/24 In Process Protocol 23:39 Rhythm Strips Once ABHI 12/11/24 In Process Every Shift 23:39 Oxygen By Nasal RT 12/11/24 Transmitted Cannula 23:39 * Cardiology Consult CONS 12/11/24 Transmitted 23:39 Troponin-I Hs LAB 12/12/24 Logged 04:00 Troponin-I Hs LAB 12/12/24 Logged 10:00 Piperacillin-Tazob PHA 12/12/24 In Process 3.375gm (Zosyn 3.375g 02:00 * Infectious Deyanira- CONS 12/11/24 Transmitted Alessandro Fowler 23:39 *Consult CONS 12/11/24 Transmitted / 23:39 Aspirin Tablet PHA 12/12/24 In Process 10:[address] 12/11/24 Logged 23:39 Date of Service: Dec 12, 2024 Billing Provider: JENN TENA MD Common Visit Codes: NOT BILLABLE JENN TENA MD 12/12/24 1205: Review of Systems Allergies: Coded Allergies: NO KNOWN ALLERGIES (Unverified , 07/11/20) Assessment/Plan Assessment/Plan Is in chart is reviewed and discussed with the nurse practitioner. I agree with that his evaluation, documentation, assessment and care plan as outlined. Plan discussed with: LEAH Dalton PRINCIPAL CLERK TYPIST Dec 12, 2024 00:56 JENN TENA MD Dec 12, 2024 12:05
[2024-12-12] MEDS: IOHEXOL 300 MG/ML 100ML BOTTLE IJ ONE (01:12)
[2024-12-12] MEDS: PIPERACILLIN-TAZOB 3.375GM 100 ML IV SCH (02:23)
--- NOTE | 2024-12-12 03:11 | DVH ---
Exam: CT CHEST WITH CONTRAST History: chest mass Comparison Study: None available at time of dictation. Technique: Multidetector CT of the chest, was performed from lower neck to diaphragms. Intravenous co ntrast was administered during this examination. Axial, coronal and sagittal multiplanar reformats we re performed by the technologist on a separate workstation. Radiation Dose Information: CT Dose: CTDI volume is 28.56 mGy. Dose-length product is 1095.91 mGy*cm Findings: Lower neck: Unremarkable. Lungs: There is masslike cavitary consolidation in the posterior aspect of the left upper lobe and la rger cavitary masslike consolidation with surrounding ground-glass attenuation in the left lower lobe . Heart/Vascular Structures: Normal caliber. No pericardial effusion. No coronary artery calcification. Lymph Nodes: Mediastinal lymphadenopathy measuring up to 16 mm in the aortopulmonary window. Left hil ar lymphadenopathy measures up to 16 mm in short axis dimension. Pleura: No pleural effusion or pneumothorax. Upper abdomen: No abnormality identified. Musculoskeletal: Degenerative changes are noted. IMPRESSION: Masslike cavitary pneumonias in the left lung as described. Suggest follow-up with CT of the thorax a fter presumptive therapy to document complete resolution. Mediastinal and left hilar lymphadenopathy, indeterminate.
[2024-12-12 06:56] LABS: Basophils # (auto) 0 10 ^3/uL (0-0.2); Basophils % (auto) 0.2 % (0.0-2.0); Eosinophils # (auto) 0.1 10 ^3/uL (0-0.8); Eosinophils % (auto) 0.6 % (0.0-7.0); Hemoglobin 13.3 g/dL (13.5-17.5); Lymphocytes # (auto) 0.6 10 ^3/uL (0.4-5.4); Lymphocytes % (auto) 7.4 % (10.0-50.0); Mean Corpuscular Hemoglobin 29.4 pg (28.0-32.0); Mean Corpuscular Hgb Conc. 33.4 g/dL (32.0-36.0); Mean Corpuscular Volume 88.2 fL (80.0-100.0); Monocytes # (auto) 0.5 10 ^3/uL (0-1.3); Monocytes % (auto) 6.2 % (0.0-12.0); Neutrophils # (auto) 7.3 10 ^3/uL (1.6-8.6); Neutrophils % (auto) 85.6 % (37.0-80.0); Platelet Count (auto) 302 10^3/uL (140-450); Red Blood Cells 4.54 10^6/uL (4.5-5.90); White Blood Cell 8.6 10^3/uL (4.4-10.8)
[2024-12-12 07:08] LABS: Chloride 101 mmol/L (98-107); Potassium 3.6 mmol/L (3.5-5.1); Sodium 137 mmol/L (136-145)
[2024-12-12 07:09] LABS: Anion Gap 12 (5-15); Carbon Dioxide 24 mmol/L (20-31)
[2024-12-12 07:14] LABS: BUN/Creatinine Ratio 19.3 (10.0-20.0); Glucose 85 mg/dL (74-106)
[2024-12-12 07:15] LABS: Blood Urea Nitrogen 26 mg/dL (9-23); Calcium 8.4 mg/dL (8.7-10.4)
[2024-12-12] MEDS: ASPirin 81 mg TAB PO SCH (09:46)
[2024-12-12] MEDS: cefTRIAXone 1GM/50ML D5W 50 ML IV SCH (09:46)
[2024-12-12] MEDS: ENOXAPARIN SOD 40 MG/0.4 ML SYRINGE SC SCH (09:47)
[2024-12-12] MEDS: AZITHROMYCIN 500MG/ 250ML 250 ML IV SCH (11:38)
[2024-12-12] MEDS ORDERED: VANCOMYCIN PER PHARMACY 0 MG IV SCH (12:30)
--- NOTE | 2024-12-12 13:17 | DVHINCON2 ---
Date of service: Dec 12, 2024 History of Present Illness 49-year-old male without any pertinent medical history presents with complaints of redness and pain to the left knee x3 days. Patient endorsed a fall. Patient denies fevers, chills, nausea, vomiting, shortness of breath , IV drug use, sustained injury to the knees. During the emergency department evaluation troponins were elevated 137/131/166. While in the emergency department patient was found to be consistently tachycardic in the 130s. Found to be positive for methamphetamines. CXR was also remarkable for multiple lung masses. Smoke: No ALCOHOL: occassional Drugs: None (Methamphetamine), Marijuana Lives: Other Past Medical History reviewed Family History: Patient reports no known family medical history. Allergies: Coded Allergies: NO KNOWN ALLERGIES (Unverified , 07/11/20) Home Meds No Active Prescriptions or Reported Meds Current Medications Current Medications Medications (Trade) Dose Ordered Sig/Reagan Route PRN Reason Start Time Stop Time Status Last Admin Sodium Chloride 1,000 ml @ 100 mls/hr Q10H IV 12/11/24 23:45 12/12/24 19:44 Docusate Sodium (Colace Capsule) 100 mg BIDPRN PRN PO FOR CONSTIPATION 12/11/24 23:45 Acetaminophen (Tylenol Tablet) 650 mg Q6HP PRN PO PAIN SCALE 1-3 OR TEMP>100.4 12/11/24 23:45 Acetaminophen/ Hydrocodone Bitart ([place] 5/325MG Tab) 1 tab Q6HP PRN PO MODERATE PAIN (4-6 PAIN SCALE) 12/11/24 23:45 12/12/24 06:42 Ondansetron HCl (Zofran) 4 mg Q4HP PRN IV NAUSEA / VOMITING 12/11/24 23:45 Enoxaparin Sodium (Lovenox) 40 mg DAILY SC 12/12/24 10:00 12/12/24 09:47 Nitroglycerin (Ntrostat Sublingual) 0.4 mg Q5MINP PRN SL FOR CHEST PAIN 12/11/24 23:45 Morphine Sulfate 2 mg Q30M PRN IV FOR CHEST PAIN 12/11/24 23:45 Piperacillin Sod/ Tazobactam Sod 100 ml @ 100 mls/hr Q8HR IV 12/12/24 02:00 2/24/25 06:26 Aspirin 81 mg DAILY PO 12/12/24 10:00 12/12/24 09:46 Ceftriaxone Sodium 50 ml @ 100 mls/hr DAILY@09 IV 12/12/24 09:00 12/12/24 12:30 DC 12/12/24 09:46 Azithromycin 250 ml @ 125 mls/hr DAILY IV 12/12/24 10:00 12/12/24 12:30 DC 12/12/24 11:38 Vancomycin HCl 0 ml @ 0 mls/hr UD IV 12/12/24 12:30 UNV Vital Signs Vital Signs Date Time Temp Pulse Resp B/P (MAP) Pulse Ox O2 Delivery O2 Flow Rate FiO2 12/12/24 12:16 98.3 69 16 93/51 (65) 93 98.3 12/12/24 03:30 Room Air* 0 21 Labs/Diagnostic Data Labs Test 12/12/24 10:23 12/12/24 06:00 12/11/24 22:01 12/11/24 17:30 Range/Units Troponin I High Sensitivity 92 *H </=54 ng/L White Blood Count 8.6 # 4.4-10.8 10^3/uL Red Blood Count 4.54 4.5-5.90 10^6/uL Hemoglobin 13.3 L 13.5-17.5 g/dL Hematocrit 40.0 L 41.0-53.0 % Mean Corpuscular Volume 88.2 80.0-100.0 fL Mean Corpuscular Hemoglobin 29.4 28.0-32.0 pg Mean Corpuscular Hemoglobin Concent 33.4 32.0-36.0 g/dL Red Cell Distribution Width 13.0 11.8-14.3 % Platelet Count 302 140-450 10^3/uL Mean Platelet Volume 8.2 6.9-10.8 fL Neutrophils (%) (Auto) 85.6 H 37.0-80.0 % Lymphocytes (%) (Auto) 7.4 L 10.0-50.0 % Monocytes (%) (Auto) 6.2 0.0-12.0 % Eosinophils (%) (Auto) 0.6 0.0-7.0 % Basophils (%) (Auto) 0.2 0.0-2.0 % Neutrophils # (Auto) 7.3 1.6-8.6 10 ^3/uL Lymphocytes # (Auto) 0.6 0.4-5.4 10 ^3/uL Monocytes # (Auto) 0.5 0-1.3 10 ^3/uL Eosinophils # (Auto) 0.1 0-0.8 10 ^3/uL Basophils # (Auto) 0 0-0.2 10 ^3/uL Nucleated Red Blood Cells 0.0 % Sodium Level 137 # 136-145 mmol/L Potassium Level 3.6 3.5-5.1 mmol/L Chloride Level 101 98-107 mmol/L Carbon Dioxide Level 24 20-31 mmol/L Anion Gap 12 5-15 Blood Urea Nitrogen 26 H 9-23 mg/dL Creatinine 1.35 H 0.700-1.30 mg/dL Glomerular Filtration Rate Calc 64 >90 mL/min BUN/Creatinine Ratio 19.3 10.0-20.0 Serum Glucose 85 74-106 mg/dL Calcium Level 8.4 L 8.7-10.4 mg/dL Urine Color Yellow Yellow Urine Clarity Turbid H Clear Urine pH 5.5 5.0-9.0 Urine Specific [place] 1.038 H 1.001-1.035 Urine Protein 1+ H Negative Urine Ketones Trace Negative Urine Blood 2+ H Negative /uL Urine Nitrite Negative Negative Urine Bilirubin Negative Negative Urine Urobilinogen 4 H Negative mg/dL Urine Leukocyte Esterase Trace Negative /uL Urine RBC 81 0 - 3 /hpf Urine Microscopic WBC 10 H 0-3 /HPF Urine Squamous Epithelial Cells Few <5 /hpf Urine Bacteria Few H None Seen /hpf Urine Hyaline Casts Few 0 - 2 /lpf Urine Glucose Normal Normal mg/dL Urine Opiates Screen Pos NEGATIVE Urine Fentanyl Screen Neg NEGATIVE Urine Barbiturates Screen Neg NEGATIVE Urine Phencyclidine Screen Neg NEGATIVE Urine Amphetamines Screen Pos NEGATIVE Urine Benzodiazepines Screen Neg NEGATIVE Urine Cocaine Screen Neg NEGATIVE Urine Cannabinoids Screen Pos NEGATIVE Lactic Acid Level 1.6 0.4-2.0 mmol/L B-Type Natriuretic Peptide 5.33 0-100 pg/mL Plasma/Serum Blood Alcohol < 3.0 <10 mg/dL Microbiology Date/Time Source Procedure Growth Status 12/11/24 17:30 Blood Blood Culture - Preliminary Resulted Assessment obesity meth abuse cellulitis cavitary lung mass drug abuse tachycardia Plan/Recommendation sinus tach now rate of 90s ID and pulm consult abx per primary team chec k echo avoid drugs Plan discussed with: Other (rn) LINDA ARZATE MD Dec 12, 2024 13:17
--- NOTE | 2024-12-12 15:20 | DVHSR ---
APPROVED REPORT EXAM: Two-dimensional and M-mode echocardiogram with Doppler and color Doppler. Blood Pressure: 119/72 mmHg INDICATION Elevated troponin RISK FACTORS Height: 6'5", Weight: 263 DIMENSIONS LVDd5.0 (3.8-5.7cm)LA (2D)3.7 (1.9-4.0cm)Aortic Root3.6 (2.0-3.7cm) LVDs3.5 (2.5-4.0cm)LA (MM) (1.9-4.0cm)Aortic Cusp Exc1.9 (1.5-2.0cm) EF (%) 60.0 (55-70%)Rt. Atrium4.0 (1.9-4.0cm)Asc. Aorta cm IVSd1.0 (0.7-1.1cm)RV (D)4.0 (1.8-2.4cm) PWd1.0 (0.7-1.1cm) Mitral Valve MitralMitral Stenosis E wave1.03m/sMV Mean GR.mmHg A wave0.96m/sMV Peak GR.mmHg E/A ratio1.12D MVAcm2 DECEL [id number] 1/2 [place] Aortic Valve Aortic ValveAortic Stenosis V11.15m/Cielo Mean GR.7mmHg V21.82m/Cielo Peak GR.13mmHg LVOT Diameter2.1 (1.8-2.4cm)Doppler AVA2.19cm2 Pulmonic Valve V21.18m/s Other Information Technically limited study due to body habitus, patient lying flat. Conclusion lvef 65% by visual estimate normal rv function no severe valve abnormalities noted limited study
[2024-12-12] MEDS: VANCOMYCIN 1GM/250ML KIT 250 ML IV SCH (16:29)
[2024-12-13] VITALS (7 sets, daily range): BP systolic 103–119; BP diastolic 54–73; PULSE 70–98; RESP 17–20; TEMP 98.4–98.8; O2SAT 20–98
[2024-12-13 06:35] LABS: Chloride 104 mmol/L (98-107); Potassium 3.6 mmol/L (3.5-5.1); Sodium 137 mmol/L (136-145)
[2024-12-13 06:36] LABS: Anion Gap 9 (5-15); Carbon Dioxide 24 mmol/L (20-31)
[2024-12-13 06:41] LABS: BUN/Creatinine Ratio 11.5 (10.0-20.0); Blood Urea Nitrogen 11 mg/dL (9-23); Glucose 98 mg/dL (74-106)
[2024-12-13 06:44] LABS: Calcium 8.5 mg/dL (8.7-10.4)
[2024-12-13 07:29] LABS: Basophils # (auto) 0 10 ^3/uL (0-0.2); Basophils % (auto) 0.4 % (0.0-2.0); Eosinophils # (auto) 0.1 10 ^3/uL (0-0.8); Eosinophils % (auto) 1.5 % (0.0-7.0); Hematocrit 36.8 % (41.0-53.0); Hemoglobin 12.6 g/dL (13.5-17.5); Lymphocytes # (auto) 1.6 10 ^3/uL (0.4-5.4); Lymphocytes % (auto) 19.2 % (10.0-50.0); Mean Corpuscular Hemoglobin 30.2 pg (28.0-32.0); Mean Corpuscular Hgb Conc. 34.1 g/dL (32.0-36.0); Mean Corpuscular Volume 88.4 fL (80.0-100.0); Monocytes # (auto) 0.8 10 ^3/uL (0-1.3); Monocytes % (auto) 9.6 % (0.0-12.0); Neutrophils # (auto) 5.7 10 ^3/uL (1.6-8.6); Neutrophils % (auto) 69.3 % (37.0-80.0); Nucleated Red Blood Cells % 0.1 %; Platelet Count (auto) 320 10^3/uL (140-450); Red Blood Cells 4.17 10^6/uL (4.5-5.90); Red Cell Distribution Width 12.7 % (11.8-14.3); White Blood Cell 8.2 10^3/uL (4.4-10.8)
--- NOTE | 2024-12-13 10:05 | DVHINCON2 ---
Date of service: Dec 12, 2024 Family History: Patient reports no known family medical history. Allergies: Coded Allergies: NO KNOWN ALLERGIES (Unverified , 07/11/20) Home Meds No Active Prescriptions or Reported Meds Current Medications Current Medications Medications (Trade) Dose Ordered Sig/Reagan Route PRN Reason Start Time Stop Time Status Last Admin Vancomycin HCl 0 ml @ 0 mls/hr UD IV 12/12/24 12:30 Vancomycin HCl 250 ml @ 200 mls/hr Q8H IV 12/12/24 16:00 12/13/24 08:41 Vital Signs Vital Signs Date Time Temp Pulse Resp B/P (MAP) Pulse Ox O2 Delivery O2 Flow Rate FiO2 12/13/24 08:24 98.7 85 18 104/61 (75) 20 98.7 12/13/24 08:01 Room Air* 0 21 Labs/Diagnostic Data Labs Test 12/13/24 05:36 12/12/24 10:23 12/11/24 22:01 12/11/24 17:30 Range/Units White Blood Count 8.2 4.4-10.8 10^3/uL Red Blood Count 4.17 L 4.5-5.90 10^6/uL Hemoglobin 12.6 L 13.5-17.5 g/dL Hematocrit 36.8 L 41.0-53.0 % Mean Corpuscular Volume 88.4 80.0-100.0 fL Mean Corpuscular Hemoglobin 30.2 28.0-32.0 pg Mean Corpuscular Hemoglobin Concent 34.1 32.0-36.0 g/dL Red Cell Distribution Width 12.7 11.8-14.3 % Platelet Count 320 140-450 10^3/uL Mean Platelet Volume 8.5 6.9-10.8 fL Neutrophils (%) (Auto) 69.3 37.0-80.0 % Lymphocytes (%) (Auto) 19.2 10.0-50.0 % Monocytes (%) (Auto) 9.6 0.0-12.0 % Eosinophils (%) (Auto) 1.5 0.0-7.0 % Basophils (%) (Auto) 0.4 0.0-2.0 % Neutrophils # (Auto) 5.7 1.6-8.6 10 ^3/uL Lymphocytes # (Auto) 1.6 0.4-5.4 10 ^3/uL Monocytes # (Auto) 0.8 0-1.3 10 ^3/uL Eosinophils # (Auto) 0.1 0-0.8 10 ^3/uL Basophils # (Auto) 0 0-0.2 10 ^3/uL Nucleated Red Blood Cells 0.1 % Sodium Level 137 136-145 mmol/L Potassium Level 3.6 3.5-5.1 mmol/L Chloride Level 104 98-107 mmol/L Carbon Dioxide Level 24 20-31 mmol/L Anion Gap 9 5-15 Blood Urea Nitrogen 11 # 9-23 mg/dL Creatinine 0.96 0.700-1.30 mg/dL Glomerular Filtration Rate Calc 96 >90 mL/min BUN/Creatinine Ratio 11.5 10.0-20.0 Serum Glucose 98 74-106 mg/dL Calcium Level 8.5 L 8.7-10.4 mg/dL Troponin I High Sensitivity 92 *H </=54 ng/L Urine Color Yellow Yellow Urine Clarity Turbid H Clear Urine pH 5.5 5.0-9.0 Urine Specific Coffey 1.038 H 1.001-1.035 Urine Protein 1+ H Negative Urine Ketones Trace Negative Urine Blood 2+ H Negative /uL Urine Nitrite Negative Negative Urine Bilirubin Negative Negative Urine Urobilinogen 4 H Negative mg/dL Urine Leukocyte Esterase Trace Negative /uL Urine RBC 81 0 - 3 /hpf Urine Microscopic WBC 10 H 0-3 /HPF Urine Squamous Epithelial Cells Few <5 /hpf Urine Bacteria Few H None Seen /hpf Urine Hyaline Casts Few 0 - 2 /lpf Urine Glucose Normal Normal mg/dL Urine Opiates Screen Pos NEGATIVE Urine Fentanyl Screen Neg NEGATIVE Urine Barbiturates Screen Neg NEGATIVE Urine Phencyclidine Screen Neg NEGATIVE Urine Amphetamines Screen Pos NEGATIVE Urine Benzodiazepines Screen Neg NEGATIVE Urine Cocaine Screen Neg NEGATIVE Urine Cannabinoids Screen Pos NEGATIVE Lactic Acid Level 1.6 0.4-2.0 mmol/L B-Type Natriuretic Peptide 5.33 0-100 pg/mL Plasma/Serum Blood Alcohol < 3.0 <10 mg/dL Microbiology Date/Time Source Procedure Growth Status 12/11/24 17:30 Blood Blood Culture - Preliminary Resulted Problems(with codes): (1) Fatty liver (2) Dehydration (3) Cannabis abuse (4) Elevated blood pressure reading (5) Needs smoking cessation education (6) Pneumonia due to COVID-19 virus (7) COVID-19 virus detected (8) Headache (9) Cervical muscle strain (10) Lumbar radiculopathy (11) Tachycardia (12) Amphetamine abuse (13) Non-STEMI (non-ST elevated myocardial infarction) (14) Cellulitis of left knee (15) Mass of left lung (16) Bronchitis (17) Cavitary pneumonia (18) Bacteremia Plan/Recommendation ASSESSMENT AND PLAN: ID Problem List: - Left knee cellulitis - Streptococcus Group A bacteremia - Cavitary lung masses - Polysubstance abuse (methamphetamine and marijuana) - Elevated troponin - Tachycardia - Acute kidney injury Assessment This is a 49 y.o. male with a past medical history of polysubstance abuse who presents with redness and swelling of the left knee for three days following a fall. He denies loss of consciousness. On admission, troponin was elevated to 1.37. He was tachycardic to the 130s. Urine drug screen was positive for amphetamines. Chest X-ray revealed multiple lung masses. He uses methamphetamine and marijuana, denies smoking tobacco, and reports occasional alcohol use. No known drug allergies. Blood cultures grew Streptococcus Group A in 1 out [address] chest showed: 1. Mass-like cavitary pneumonia in the left lung. 2. A 7 cm round mass in the left lower lung field. 3. Three additional masses concerning for pulmonary malignancy and metastatic disease. 4. Mediastinal and left lymphadenopathy indeterminate. Plan: - Continue vancomycin and ceftriaxone for left knee cellulitis and possible pneumonia. - Vancomycin and ceftriaxone will cover Group A Streptococcus. - Recommend screening for HIV and hepatitis. - Obtain respiratory cultures; fungal screen; cryptococcal and aspergillus serologies. - Consult pulmonology to arrange for biopsy of pulmonary masses, either outpatient if patient remains stable or inpatient bronchoscopy if necessary. - Patient will require counseling for methamphetamine abuse cessation. - Patient is not a good candidate for PICC line placement given substance abuse history. - Agree with TTE to further evaluate for endocarditis. - Likely source of infection is pneumonia or open wound. - Will monitor blood cultures. - Patient will need at least 14 days of antibiotics for both pneumonia and cellulitis; can transition to oral antibiotics based on sensitivities. Isolation Precautions: standard Assessment and plan were discussed with the patient as written above. Plan is subject to change pending incorporation of new incoming information/diagnostics. Updates may be added as addendum at the bottom (OR TOP) of this note. Thank you for interesting consult. ID will continue to follow. Please contact Infectious Disease for any questions or concerns. Dr. Vineet Diane M.D. [facility] Ph: ? History: The patient's chart and medications were reviewed in detail, and the patient was seen and examined. History obtained from: patient Mr. Kip Matamoros is a 49 y.o. male with a past medical history of polysubstance abuse who presents with redness and swelling of the left knee for three days following a fall. He denies losing consciousness. He reports no smoking, occasional alcohol use, and uses methamphetamine and marijuana. No known drug allergies. Review of Systems: A complete 10-system review of systems was completed and negative except as noted in the HPI or here. ROS: - CONSTITUTIONAL: Denies weight loss, fever, and chills. - HEENT: Denies changes in vision and hearing. - RESPIRATORY: Denies shortness of breath and cough. - CV: Denies palpitations and chest pain. - GI: Denies abdominal pain, nausea, vomiting, and diarrhea. - : Denies dysuria and urinary frequency. - MSK: Reports left knee pain with redness and swelling. - SKIN: Reports laceration on left knee. - NEUROLOGICAL: Denies headache and syncope. - PSYCHIATRIC: Denies recent changes in mood, anxiety, and depression. Past Medical History: - Polysubstance abuse Past Surgical History: History reviewed. No pertinent surgical history. Home Medications: Prior to Admission medications: No home medications listed. Allergies: No Known Allergies Family History: Family history not provided. Social History: Socioeconomic History - Marital status: Not provided - Number of children: Not on file - Years of education: Not on file - Highest education level: Not on file Occupational History - Not on file Tobacco Use - Smoking status: Denies smoking Vaping Use - Vaping status: Never used Substance and Sexual Activity - Alcohol use: Occasional - Drug use: Methamphetamine and marijuana - Sexual activity: Not provided Other Topics Concern - Not on file Social Determinants of Health - Financial Resource Strain: Not assessed - Food Insecurity: Not assessed - Transportation Needs: Not assessed - Physical Activity: Not assessed - Stress: Not assessed - Social Connections: Not assessed - Intimate Partner Violence: Not assessed Objective: Vital Signs on Arrival: - Temp: 97.5 F - BP: 95/54 mmHg - Pulse: 96 bpm - Resp: 28 - SpO2: 95% on room air Most Recent Vital Signs: - Temp: 98.6 F - BP: 104/63 mmHg - Pulse: 93 bpm - Resp: 20 - SpO2: 98% on room air Admission Weight: Not provided Physical Exam: - General: NAD - Neck: Supple. No masses. - HEENT: PERRL. Normal lids and conjunctiva. Moist mucous membranes. Oropharynx without lesions, exudates, or excessive erythema. Normal appearance of the external aspects of the nose and ears. - Heart: Regular rhythm, normal rate. No murmur. No lower extremity edema. - Lungs: Normal respiratory effort. Clear to auscultation bilaterally. No wheezes. No crackles. - Abdomen: Soft. Non-tender. Non-distended. No masses or abdominal hernia. - MSK: No digital cyanosis. Normal strength and tone in all 4 limbs. Left knee with laceration, tenderness, warmth; no swelling, no drainage. - Skin: Warm and dry. Laceration on left knee with surrounding skin tear, tenderness, and warmth. - Neuro: Alert. No facial droop or slurred speech. Extra-ocular movements intact. Sensation intact to soft touch in all 4 limbs. - Psych: Appropriate mood. Full affect. Oriented to person, place, time, and situation. Lines: - Active Lines: Peripheral IV Line [Details not provided] Diagnostic Studies: Available diagnostic studies were reviewed personally. Significant relevant results and findings are outlined below or addressed in the Assessment and Plan above. Pertinent Imaging: Recent Results: CT Chest: - Impression: - 1. Mass-like cavitary pneumonia in the left lung. - 2. Suggest follow-up CT thorax after presumptive therapy to document complete resolution. - 3. Mediastinal and left lymphadenopathy indeterminate. - 4. 7 cm round mass in left lower lung field. - 5. Three additional masses concerning for pulmonary malignancy and metastatic disease. XR Left Knee: - Impression: - No acute fracture, dislocation, or destructive osseous lesion. - Prepatellar soft tissue attenuation may represent edema versus cellulitis/phlegmon. - No focal fluid collection to suggest abscess. Laboratory Results: - Troponin: Elevated at 1.37 - Creatinine: 1.31 BUN: 23 - Blood Alcohol Level: < 3 - Urinalysis: Positive for amphetamines; pyuria with trace leukocytes - Blood Cultures: Positive for Streptococcus Group A in 1 out of 4 bottles Provider: Vineet Diane M.D. [facility] Ph: ? Plan discussed with: Patient VINEET DIANE MD Dec 13, 2024 10:05
--- NOTE | 2024-12-13 12:47 | DVHPN2 ---
Progress Note - Dictate Date Seen: Dec 13, 2024 Medical Necessity Reason Pt with a Central, PICC or Fol: No Subjective Clinically feeling better. However still complains of left knee discomfort and says painful with ambulation. vital signs Vital Sign Date Time Temp Pulse Resp B/P (MAP) Pulse Ox O2 Delivery O2 Flow Rate FiO2 12/13/24 12:08 98.7 79 20 103/54 (70) 93 98.7 12/13/24 08:01 Room Air* 0 21 Total Intake and Output 12/12/24 12/12/24 12/13/24 15:00 23:00 07:00 Intake Total 1938 ml 1000 ml Output Total 500 ml 1450 ml 1750 ml Balance -500 ml 488 ml -750 ml medications Current Medications Medications Dose Ordered Sig/Reagan Route Start Time Stop Time Status Last Admin Dose Admin Docusate Sodium 100 mg BIDPRN PRN PO 12/11/24 23:45 Acetaminophen 650 mg Q6HP PRN PO 12/11/24 23:45 Acetaminophen/ Hydrocodone Bitart 1 tab Q6HP PRN PO 12/11/24 23:45 12/13/24 06:36 1 TAB Ondansetron HCl 4 mg Q4HP PRN IV 12/11/24 23:45 Enoxaparin Sodium 40 mg DAILY SC 12/12/24 10:00 12/13/24 09:11 40 MG Nitroglycerin 0.4 mg Q5MINP PRN SL 12/11/24 23:45 Morphine Sulfate 2 mg Q30M PRN IV 12/11/24 23:45 Aspirin 81 mg DAILY PO 12/12/24 10:00 12/13/24 09:11 81 MG Vancomycin HCl 0 ml @ 0 mls/hr UD IV 12/12/24 12:30 Vancomycin HCl 250 ml @ 200 mls/hr Q8H IV 12/12/24 16:00 12/13/24 08:41 200 MLS/HR Ceftriaxone Sodium/Dextrose 50 ml @ 50 mls/hr DAILY IV 12/14/24 10:00 UNV objective Comfortable in bed without distress. Alert awake oriented x3. HEENT neck supple no JVD. Heart regular rate and rhythm S1-S2. Lungs fair air movement without wheezing. Chest equal expansion. Abdomen soft nontender positive bowel sounds. Extremities no edema positive pulses. Left knee shows erythema/redness but no palpable fluid collection noted. Range of motion is present. laboratory and microbiology Laboratory Tests 12/13/24 05:36 Test 12/13/24 05:36 Range/Units Serum Glucose 98 74-106 mg/dL Assessment/Plan Patient's blood cultures 10/20 are positive so far. Patient is on Rocephin and vancomycin. His white cell count is improved. Patient is not septic. Continue current antibiotics. Waiting Pulmonary input for his cavitary pneumonia. Continue IV fluids. I will have orthopedic consultation today for his left knee pain with erythema. Meantime we will have physical therapy evaluation. Encouraged activity as much as possible. Otherwise his further clinical management per clinical course and recommendations from the consultants. Discussed with the patient at bedside regarding care plan. Problems(with codes): (1) Cavitary pneumonia (2) Cellulitis of left knee (3) Bronchitis (4) Bacteremia Plan discussed with: Patient, Other JENN TENA MD Dec 13, 2024 12:47
--- NOTE | 2024-12-13 15:48 | DVHPN2 ---
Consult Progress Note Date Seen: Dec 13, 2024 Subjective Patient reports: Other (breathing well on rooma ir and endorsing mild weight loss , clear lungs , no swelling in the legs and knee injury is slowly improving ) Objective vital signs Vital Sign Date Time Temp Pulse Resp B/P (MAP) Pulse Ox O2 Delivery O2 Flow Rate FiO2 12/13/24 12:08 98.7 79 20 103/54 (70) 93 98.7 12/13/24 08:01 Room Air* 0 21 Total Intake and Output 12/12/24 12/12/24 12/13/24 15:00 23:00 07:00 Intake Total 1938 ml 1000 ml Output Total 500 ml 1450 ml 1750 ml Balance -500 ml 488 ml -750 ml medications Current Medications Medications Dose Ordered Sig/Reagan Route Start Time Stop Time Status Last Admin Dose Admin Docusate Sodium 100 mg BIDPRN PRN PO 12/11/24 23:45 Acetaminophen 650 mg Q6HP PRN PO 12/11/24 23:45 Acetaminophen/ Hydrocodone Bitart 1 tab Q6HP PRN PO 12/11/24 23:45 12/13/24 12:55 1 TAB Ondansetron HCl 4 mg Q4HP PRN IV 12/11/24 23:45 Enoxaparin Sodium 40 mg DAILY SC 12/12/24 10:00 12/13/24 09:11 40 MG Nitroglycerin 0.4 mg Q5MINP PRN SL 12/11/24 23:45 Morphine Sulfate 2 mg Q30M PRN IV 12/11/24 23:45 Aspirin 81 mg DAILY PO 12/12/24 10:00 12/13/24 09:11 81 MG Vancomycin HCl 0 ml @ 0 mls/hr UD IV 12/12/24 12:30 Vancomycin HCl 250 ml @ 200 mls/hr Q8H IV 12/12/24 16:00 12/13/24 08:41 200 MLS/HR Ceftriaxone Sodium/Dextrose 50 ml @ 50 mls/hr DAILY IV 12/14/24 10:00 UNV Physical Exam: - General: NAD - Neck: Supple. No masses. - HEENT: PERRL. Normal lids and conjunctiva. Moist mucous membranes. Oropharynx without lesions, exudates, or excessive erythema. Normal appearance of the external aspects of the nose and ears. - Heart: Regular rhythm, normal rate. No murmur. No lower extremity edema. - Lungs: Normal respiratory effort. Clear to auscultation bilaterally. No wheezes. No crackles. - Abdomen: Soft. Non-tender. Non-distended. No masses or abdominal hernia. - MSK: No digital cyanosis. Normal strength and tone in all 4 limbs. Left knee with laceration, tenderness, warmth; no swelling, no drainage. - Skin: Warm and dry. Laceration on left knee with surrounding skin tear, tenderness, and warmth. - Neuro: Alert. No facial droop or slurred speech. Extra-ocular movements intact. Sensation intact to soft touch in all 4 limbs. - Psych: Appropriate mood. Full affect. Oriented to person, place, time, and situation. laboratory and microbiology Laboratory Tests 12/13/24 05:36 Test 12/13/24 05:36 Range/Units Serum Glucose 98 74-106 mg/dL Problem List/Assessment/Plan Problems(with codes): (1) Pneumonia due to COVID-19 virus (2) COVID-19 virus detected (3) Cervical muscle strain (4) Needs smoking cessation education (5) Elevated blood pressure reading (6) Headache (7) Cannabis abuse (8) Lumbar radiculopathy (9) Dehydration (10) Fatty liver (11) Bacteremia Problem List/Assessment/Plan ID Problem List: - Left knee cellulitis - Streptococcus Group A bacteremia - Cavitary lung masses - Polysubstance abuse (methamphetamine and marijuana) - Elevated troponin - Tachycardia - Acute kidney injury Assessment This is a 49 y.o. male with a past medical history of polysubstance abuse who presents with redness and swelling of the left knee for three days following a fall. He denies loss of consciousness. On admission, troponin was elevated to 1.37. He was tachycardic to the 130s. Urine drug screen was positive for amphetamines. Chest X-ray revealed multiple lung masses. He uses methamphetamine and marijuana, denies smoking tobacco, and reports occasional alcohol use. No known drug allergies. Blood cultures grew Streptococcus Group A in 1 out [address] chest showed: 1. Mass-like cavitary pneumonia in the left lung. 2. A 7 cm round mass in the left lower lung field. 3. Three additional masses concerning for pulmonary malignancy and metastatic disease. 4. Mediastinal and left lymphadenopathy indeterminate. 12/13: clinically improving on antibiotic therapy Plan: - Continue vancomycin and ceftriaxone for left knee cellulitis and possible pneumonia. - Vancomycin and ceftriaxone will cover Group A Streptococcus. - Recommend screening for HIV and hepatitis. - Obtain respiratory cultures; fungal screen; cryptococcal and aspergillus serologies. - Consult pulmonology to arrange for biopsy of pulmonary masses, either outpatient if patient remains stable or inpatient bronchoscopy if necessary. - Patient will require counseling for methamphetamine abuse cessation. - Patient is not a good candidate for PICC line placement given substance abuse history. - Agree with TTE to further evaluate for endocarditis. - Likely source of infection is pneumonia or open wound. - Will monitor blood cultures. - Patient will need at least 14 days of antibiotics for both pneumonia and cellulitis; can transition to oral antibiotics based on sensitivities. Isolation Precautions: standard Plan discussed with: Other VINEET DIANE MD Dec 13, 2024 15:48
[2024-12-13] MEDS: cefTRIAXone 2GM/50ML D5W 50 ML IV SCH (18:20)
--- NOTE | 2024-12-13 22:13 | DVHINCON2 ---
Date of service: Dec 13, 2024 Referring Physician Patricio Montana NP Reason for Consultation Left lung mass and pneumonia History of Present Illness A 49-year-old man with no significant past medical history who presented to ED on 12/11/24 with complaints of redness and pain to the left knee x3 days s/p fall. Patient denied fevers, chills, nausea, vomiting, shortness of breath or IV drug use. ED workup showed troponins elevated, 137/131/166. While in the emergency department patient was found to be consistently tachycardic in the 130s. Tox screen positive for methamphetamines. Chest x-ray was also remarkable for multiple lung masses. Patient was admitted for further care and pulmonary consultation is requested for evaluation and management due to the above findings Review of Systems: 14-point review of systems negative unless otherwise noted above. Past Medical History: None Past Surgical History: None Medications: Reviewed. Allergies: No known drug allergies. Family History: No family history of premature CAD. No family history of lung disorders. Social History: Smoking: Nonsmoker. Alcohol: Occasional alcohol use Drugs: Methamphetamine, Marijuana Family History: Patient reports no known family medical history. Allergies: Coded Allergies: NO KNOWN ALLERGIES (Unverified , 07/11/20) Home Meds Active Scripts Metronidazole (Flagyl) 500 Mg Tab, 1 TAB PO TID, #30 TAB Prov:JENN TENA MD 12/14/24 Cefdinir (Cefdinir) 300 Mg Cap, 1 CAP PO BID, #20 CAP Prov:JENN TENA MD 12/14/24 Current Medications Current Medications Medications (Trade) Dose Ordered Sig/Reagan Route PRN Reason Start Time Stop Time Status Last Admin Ceftriaxone Sodium/Dextrose 50 ml @ 50 mls/hr DAILY IV 12/13/24 16:05 12/13/24 18:20 Vancomycin HCl 250 ml @ 200 mls/hr Q8H IV 12/14/24 00:00 Vital Signs Vital Signs Date Time Temp Pulse Resp B/P (MAP) Pulse Ox O2 Delivery O2 Flow Rate FiO2 12/13/24 21:00 98.8 98 17 107/70 (82) 92 98.8 12/13/24 08:01 Room Air* 0 21 Physical Exam Gen.: Patient lying in bed in no apparent distress. Breathing on room air. Head: Normocephalic, atraumatic. Eyes: EOMI/PERRLA. Ears: Normal hearing. Normal anatomy. Neck/trachea: Trachea midline, supple. Nose: Normal external anatomy. Mouth: Moist mucous membranes. Chest: Decreased air entry bilaterally. No wheezing or rhonchi. Cardiovascular: Positive S1, positive S2. Regular rate and rhythm. Abdomen: Positive bowel sounds in all 4 quadrants. Soft, non-tender, non- distended. : Deferred. Rectal: Deferred. Skin: Warm, dry. Intact. Extremities: 2+ radial pulses bilaterally. No lower extremity edema. Neuro: Awake, alert, oriented x3. No gross motor or sensory deficits. Cranial nerves II through XII intact. Gait not assessed. Labs/Diagnostic Data Labs Test 12/13/24 18:45 12/13/24 16:02 12/13/24 05:36 12/12/24 10:23 Range/Units HIV (1&2) Antibody Negative Negative Vancomycin Level Trough 9.6 5-10 ug/mL White Blood Count 8.2 4.4-10.8 10^3/uL Red Blood Count 4.17 L 4.5-5.90 10^6/uL Hemoglobin 12.6 L 13.5-17.5 g/dL Hematocrit 36.8 L 41.0-53.0 % Mean Corpuscular Volume 88.4 80.0-100.0 fL Mean Corpuscular Hemoglobin 30.2 28.0-32.0 pg Mean Corpuscular Hemoglobin Concent 34.1 32.0-36.0 g/dL Red Cell Distribution Width 12.7 11.8-14.3 % Platelet Count 320 140-450 10^3/uL Mean Platelet Volume 8.5 6.9-10.8 fL Neutrophils (%) (Auto) 69.3 37.0-80.0 % Lymphocytes (%) (Auto) 19.2 10.0-50.0 % Monocytes (%) (Auto) 9.6 0.0-12.0 % Eosinophils (%) (Auto) 1.5 0.0-7.0 % Basophils (%) (Auto) 0.4 0.0-2.0 % Neutrophils # (Auto) 5.7 1.6-8.6 10 ^3/uL Lymphocytes # (Auto) 1.6 0.4-5.4 10 ^3/uL Monocytes # (Auto) 0.8 0-1.3 10 ^3/uL Eosinophils # (Auto) 0.1 0-0.8 10 ^3/uL Basophils # (Auto) 0 0-0.2 10 ^3/uL Nucleated Red Blood Cells 0.1 % Sodium Level 137 136-145 mmol/L Potassium Level 3.6 3.5-5.1 mmol/L Chloride Level 104 98-107 mmol/L Carbon Dioxide Level 24 20-31 mmol/L Anion Gap 9 5-15 Blood Urea Nitrogen 11 # 9-23 mg/dL Creatinine 0.96 0.700-1.30 mg/dL Glomerular Filtration Rate Calc 96 >90 mL/min BUN/Creatinine Ratio 11.5 10.0-20.0 Serum Glucose 98 74-106 mg/dL Calcium Level 8.5 L 8.7-10.4 mg/dL Troponin I High Sensitivity 92 *H </=54 ng/L Test 12/11/24 22:01 12/11/24 17:30 Range/Units Urine Color Yellow Yellow Urine Clarity Turbid H Clear Urine pH 5.5 5.0-9.0 Urine Specific [place] 1.038 H 1.001-1.035 Urine Protein 1+ H Negative Urine Ketones Trace Negative Urine Blood 2+ H Negative /uL Urine Nitrite Negative Negative Urine Bilirubin Negative Negative Urine Urobilinogen 4 H Negative mg/dL Urine Leukocyte Esterase Trace Negative /uL Urine RBC 81 0 - 3 /hpf Urine Microscopic WBC 10 H 0-3 /HPF Urine Squamous Epithelial Cells Few <5 /hpf Urine Bacteria Few H None Seen /hpf Urine Hyaline Casts Few 0 - 2 /lpf Urine Glucose Normal Normal mg/dL Urine Opiates Screen Pos NEGATIVE Urine Fentanyl Screen Neg NEGATIVE Urine Barbiturates Screen Neg NEGATIVE Urine Phencyclidine Screen Neg NEGATIVE Urine Amphetamines Screen Pos NEGATIVE Urine Benzodiazepines Screen Neg NEGATIVE Urine Cocaine Screen Neg NEGATIVE Urine Cannabinoids Screen Pos NEGATIVE Lactic Acid Level 1.6 0.4-2.0 mmol/L B-Type Natriuretic Peptide 5.33 0-100 pg/mL Plasma/Serum Blood Alcohol < 3.0 <10 mg/dL Microbiology Date/Time Source Procedure Growth Status 12/11/24 17:30 Blood Blood Culture - Preliminary Resulted Assessment Impression: Left lung mass Pneumonia Left knee cellulitis Methamphetamine abuse Atelectasis Obesity, BMI 31.1 Plan: Supplemental oxygen PRN Titrate to keep O2 sats above 92%. Continue antibiotics Incentive spirometry Cardiology recommendations appreciated. ID recommendations appreciated. Patient declined bronchoscopy w/ biopsy. Wishes to do antibiotics and repeat CT chest in 6-8 weeks - patient is aware of risks and benefits. Monitor renal function. Monitor electrolytes. Supplement as necessary. Monitor ins and outs. Diet and lifestyle modifications for weight reduction Obesity - complicates all care DVT prophylaxis. Prognosis: Poor given patient's multiple co-morbidities. Rest of plan per hospitalist and other consultants. Thank you, JADA Montana, for allowing me to participate in this patient's care. Further recommendations will depend on the patient's clinical course. Please do not hesitate to contact me if you have any questions or concerns. This medical document was created using an electronic medical record system with [employer] dictation system. Although these documentations are being carefully reviewed, there may still be some phonetic and typographical changes. The errors are purely typographical, due to imperfection on the software program, and do not reflect any compromise in the patient's medical care. Plan discussed with: Patient, Other (BRITTNY Mane/JADA Montana/) GLYNN DENISE MD Dec 13, 2024 22:13
[2024-12-13] MEDS: VANCOMYCIN 1.25GM/250ML 250 ML IV SCH (23:30)
[2024-12-14] VITALS (7 sets, daily range): BP systolic 104–128; BP diastolic 62–86; PULSE 70–91; RESP 17–18; TEMP 97.6–98.5; O2SAT 94–97
[2024-12-14 06:07] LABS: Basophils # (auto) 0 10 ^3/uL (0-0.2); Basophils % (auto) 0.4 % (0.0-2.0); Eosinophils # (auto) 0.2 10 ^3/uL (0-0.8); Eosinophils % (auto) 2.4 % (0.0-7.0); Hematocrit 38.3 % (41.0-53.0); Hemoglobin 12.8 g/dL (13.5-17.5); Lymphocytes # (auto) 1.6 10 ^3/uL (0.4-5.4); Mean Corpuscular Hemoglobin 29.3 pg (28.0-32.0); Mean Corpuscular Hgb Conc. 33.3 g/dL (32.0-36.0); Monocytes # (auto) 0.6 10 ^3/uL (0-1.3); Monocytes % (auto) 8.4 % (0.0-12.0); Neutrophils # (auto) 4.9 10 ^3/uL (1.6-8.6); Neutrophils % (auto) 66.8 % (37.0-80.0); Nucleated Red Blood Cells % 0.1 %; Platelet Count (auto) 333 10^3/uL (140-450); Red Blood Cells 4.35 10^6/uL (4.5-5.90); Red Cell Distribution Width 12.9 % (11.8-14.3); White Blood Cell 7.3 10^3/uL (4.4-10.8)
[2024-12-14 06:30] LABS: Anion Gap 9 (5-15); Carbon Dioxide 25 mmol/L (20-31); Chloride 105 mmol/L (98-107); Sodium 139 mmol/L (136-145)
[2024-12-14 06:32] LABS: Calcium 8.9 mg/dL (8.7-10.4)
[2024-12-14 06:36] LABS: BUN/Creatinine Ratio 13.6 (10.0-20.0); Blood Urea Nitrogen 11 mg/dL (9-23); Glucose 96 mg/dL (74-106)
[2024-12-14] MEDS ORDERED: METR-344 PO (13:45)
[2024-12-14] MEDS ORDERED: CEFD300C2 PO (13:45)
--- NOTE | 2024-12-14 13:48 | DVHDS2 ---
Discharge Summary Date of Admission Dec 11, 2024 at 23:39 Date of Discharge: Dec 14, 2024 Labs/Diagnostic Data: Laboratory Results Test 12/14/24 05:21 12/13/24 18:45 12/13/24 16:02 12/12/24 10:23 White Blood Count 7.3 10^3/uL (4.4-10.8) Red Blood Count 4.35 10^6/uL (4.5-5.90) Hemoglobin 12.8 g/dL (13.5-17.5) Hematocrit 38.3 % (41.0-53.0) Mean Corpuscular Volume 88.0 fL (80.0-100.0) Mean Corpuscular Hemoglobin 29.3 pg (28.0-32.0) Mean Corpuscular Hemoglobin Concent 33.3 g/dL (32.0-36.0) Red Cell Distribution Width 12.9 % (11.8-14.3) Platelet Count 333 10^3/uL (140-450) Mean Platelet Volume 8.0 fL (6.9-10.8) Neutrophils (%) (Auto) 66.8 % (37.0-80.0) Lymphocytes (%) (Auto) 22.0 % (10.0-50.0) Monocytes (%) (Auto) 8.4 % (0.0-12.0) Eosinophils (%) (Auto) 2.4 % (0.0-7.0) Basophils (%) (Auto) 0.4 % (0.0-2.0) Neutrophils # (Auto) 4.9 10 ^3/uL (1.6-8.6) Lymphocytes # (Auto) 1.6 10 ^3/uL (0.4-5.4) Monocytes # (Auto) 0.6 10 ^3/uL (0-1.3) Eosinophils # (Auto) 0.2 10 ^3/uL (0-0.8) Basophils # (Auto) 0 10 ^3/uL (0-0.2) Nucleated Red Blood Cells 0.1 % Sodium Level 139 mmol/L (136-145) Potassium Level 4.0 mmol/L (3.5-5.1) Chloride Level 105 mmol/L (98-107) Carbon Dioxide Level 25 mmol/L (20-31) Anion Gap 9 (5-15) Blood Urea Nitrogen 11 mg/dL (9-23) Creatinine 0.81 mg/dL (0.700-1.30) Glomerular Filtration Rate Calc 107 mL/min (>90) BUN/Creatinine Ratio 13.6 (10.0-20.0) Serum Glucose 96 mg/dL (74-106) Calcium Level 8.9 mg/dL (8.7-10.4) HIV (1&2) Antibody Negative (Negative) Vancomycin Level Trough 9.6 ug/mL (5-10) Troponin I High Sensitivity 92 ng/L (</=54) Test 12/11/24 22:01 12/11/24 17:30 Urine Color Yellow (Yellow) Urine Clarity Turbid (Clear) Urine pH 5.5 (5.0-9.0) Urine Specific [place] 1.038 (1.001-1.035) Urine Protein 1+ (Negative) Urine Ketones Trace (Negative) Urine Blood 2+ /uL (Negative) Urine Nitrite Negative (Negative) Urine Bilirubin Negative (Negative) Urine Urobilinogen 4 mg/dL (Negative) Urine Leukocyte Esterase Trace /uL (Negative) Urine RBC 81 /hpf (0 - 3) Urine Microscopic WBC 10 /HPF (0-3) Urine Squamous Epithelial Cells Few /hpf (<5) Urine Bacteria Few /hpf (None Seen) Urine Hyaline Casts Few /lpf (0 - 2) Urine Glucose Normal mg/dL (Normal) Urine Opiates Screen Pos (NEGATIVE) Urine Fentanyl Screen Neg (NEGATIVE) Urine Barbiturates Screen Neg (NEGATIVE) Urine Phencyclidine Screen Neg (NEGATIVE) Urine Amphetamines Screen Pos (NEGATIVE) Urine Benzodiazepines Screen Neg (NEGATIVE) Urine Cocaine Screen Neg (NEGATIVE) Urine Cannabinoids Screen Pos (NEGATIVE) Lactic Acid Level 1.6 mmol/L (0.4-2.0) B-Type Natriuretic Peptide 5.33 pg/mL (0-100) Plasma/Serum Blood Alcohol < 3.0 mg/dL (<10) Other Laboratory Tests 12/14/24 05:21 Brief Hx & Hospital Course: 49-year-old male without any pertinent medical history presents with complaints of redness and pain to the left knee x3 days. Patient endorsed a fall. Patient denies fevers, chills, nausea, vomiting, shortness of breath , IV drug use, sustained injury to the knees. During the emergency department evaluation troponins were elevated 137/131/166. While in the emergency department patient was found to be consistently tachycardic in the 130s. Found to be positive for methamphetamines. CXR was also remarkable for multiple lung masses. He is admitted and treated for possible pneumonia with IV antibiotics. His blood cultures were growing staph organisms for which he received vancomycin. Patient remained afebrile while in the hospital. White cell count is normalized. He is oxygenating normally on room air. Patient is evaluated by film cutter as well as Infectious Disease physician. Patient is recommended to have inpatient bronchoscopy for possible biopsy of the lesion in the lung given the possibility of mass/lung cancer. However patient declined and wanted to continue antibiotics and follow up outpatient with a film cutter. I have told him that it is reasonable to do a follow up CT scan after two months to make sure pneumonia has resolved and still if there is underlying mass then he should consider biopsy of the mass to rule out cancer. Patient verbalized understanding of this and agrees with the trial of antibiotics for possible pneumonia and follow up CT scan prior to deciding for bronchoscopy and biopsy. He is also advised to follow up with the infectious disease physician and orthopedic surgeon for his knee cellulitis. He was also counseled and educated regarding his methamphetamine misuse/abuse and advised to seek help with drug rehab programs. He is also advised to follow up with his PCP in next 1-2 weeks and have referrals to the consultants as deemed appropriate. Patient otherwise clinically feeling better and is anxious to go home. I have talked with the patient at length regarding his possible diagnosis, CT scan findings, treatment he received in the hospital, discharge medications, discharge instructions and follow-up plan of care. He has verbalized understanding of these and agree with the care plan as mentioned. Operations or Procedures EXAM: Two-dimensional and M-mode echocardiogram with Doppler and color Doppler. Blood Pressure: 119/72 mmHg INDICATION Elevated troponin RISK FACTORS Height: 6'5", Weight: 263 DIMENSIONS LVDd 5.0 (3.8-5.7cm) LA (2D) 3.7 (1.9-4.0cm) Aortic Root 3.6 (2.0- 3.7cm) LVDs 3.5 (2.5-4.0cm) LA (MM) (1.9-4.0cm) Aortic Cusp Exc 1.9 (1.5- 2.0cm) EF (%) 60.0 (55-70%) Rt. Atrium 4.0 (1.9-4.0cm) Asc. Aorta cm IVSd 1.0 (0.7-1.1cm) RV (D) 4.0 (1.8-2.4cm) PWd 1.0 (0.7-1.1cm) Mitral Valve Mitral Mitral Stenosis E wave 1.03m/s MV Mean GR. mmHg A wave 0.96m/s MV Peak GR. mmHg E/A ratio 1.1 2D MVA cm2 DECEL Time 165ms PRESS 1/2 Time ms Aortic Valve Aortic Valve Aortic Stenosis V1 1.15m/s AO Mean GR. 7mmHg V2 1.82m/s AO Peak GR. 13mmHg LVOT Diameter 2.1 (1.8-2.4cm) Doppler ALIZA 2.19cm2 Pulmonic Valve V2 1.18m/s Other Information Technically limited study due to body habitus, patient lying flat. Conclusion lvef 65% by visual estimate normal rv function no severe valve abnormalities noted limited study SIGNED BY: LINDA ARZATE MD SIGNED DATE/TIME: 12/12/24 1520 Condition at Discharge: Stable Final Diagnosis/Problems List Pneumonia with a cavitary lesion, methamphetamine misuse disorder, left knee cellulitis Discharge Disposition: Home Discharge Instruct/Medications Diet: Consistent carbohydrate, Cardiac 2g Na,low cholest Activity: No Restrictions, As Tolerated Follow Up/Referral: Dr. Boom Bennett lung doctor after 3-4 weeks follow up pneumonia. To have a repeat CT of the chest with contrast done after two months to make sure pneumonia has resolved and there is no underlying mass. Follow up with VINEET DIANE MD infectious doctor after two weeks for pneumonia and left knee redness. Follow up with orthopedic doctor Jules after two weeks for left knee pain and redness. Medications: As prescribed. New Medications: Cefdinir (Cefdinir) 300 Mg Cap 1 CAP PO BID, #20 CAP Metronidazole (Flagyl) 500 Mg Tab 1 TAB PO TID, #30 TAB Discharge Statement: "Patient was advised to return to the ER or call 911 if any headaches, dizziness, shortness of breath, chest pain, abdominal pain, bleeding, fevers, or worsening of medical condition. Patient was counseled about treatment plan, medications, possible side effects, patientverbalized understanding. All questions were answered to the best of my ability. This discharge took greater then 30 minutes in planning, reviewing documentation, counseling the patient, and discussing with other team members." ASSESSMENT ASSESSMENT Assessment Pneumonia with a cavitary lesion, methamphetamine misuse disorder, left knee cellulitis JENN TENA MD Dec 14, 2024 13:48
--- NOTE | 2024-12-14 22:47 | DVHPN2 ---
Progress Note - Dictate Date Seen: Dec 14, 2024 Medical Necessity Reason Pt with a Central, PICC or Fol: No Subjective Patient seen and examined at bedside. Remains on room air Overnight events reviewed. vital signs Vital Sign Date Time Temp Pulse Resp B/P (MAP) Pulse Ox O2 Delivery O2 Flow Rate FiO2 12/14/24 17:00 97.6 78 18 104/62 (76) 97 97.6 12/14/24 08:00 Room Air* 0 21 Total Intake and Output 12/13/24 12/13/24 12/14/24 15:00 23:00 07:00 Intake Total 930 ml 700 ml Output Total 1700 ml 800 ml 700 ml Balance -1700 ml 130 ml 0 ml objective Gen.: Patient lying in bed in no apparent distress. On room air. Head: Normocephalic, atraumatic. Eyes: EOMI/PERRLA. Ears: Normal hearing. Normal anatomy. Neck/trachea: Trachea midline, supple. Nose: Normal external anatomy. Mouth: Moist mucous membranes. Chest: Decreased air entry bilaterally. No wheezing or rhonchi. Cardiovascular: Positive S1, positive S2. Regular rate and rhythm. Abdomen: Positive bowel sounds in all 4 quadrants. Soft, non-tender, non- distended. : Deferred. Rectal: Deferred. Skin: Warm, dry. Intact. Extremities: 2+ radial pulses bilaterally. No lower extremity edema. Neuro: Awake, alert, oriented x3. No gross motor or sensory deficits. Cranial nerves II through XII intact. Gait not assessed. laboratory and microbiology Laboratory Tests 12/14/24 05:21 Test 12/14/24 05:21 Range/Units Serum Glucose 96 74-106 mg/dL Assessment/Plan Impression: Left lung mass Pneumonia Left knee cellulitis Methamphetamine abuse Atelectasis Obesity, BMI 31.1 Events: Remains on room air supplemental oxygen PRN Continue bronchodilators Continue antibiotics Incentive spirometry Antitussive for cough Diurese to euvolemia Monitor renal function. Monitor electrolytes. Supplement as necessary. Labs and imaging reviewed. Rest of plan as noted below. Plan: Supplemental oxygen PRN Titrate to keep O2 sats above 92%. Continue antibiotics Incentive spirometry Cardiology recommendations appreciated. ID recommendations appreciated. Patient declined bronchoscopy w/ biopsy. Wishes to do antibiotics and repeat CT chest in 6-8 weeks - patient is aware of risks and benefits. Monitor renal function. Monitor electrolytes. Supplement as necessary. Monitor ins and outs. Diet and lifestyle modifications for weight reduction Obesity - complicates all care DVT prophylaxis. Prognosis: Poor given patient's multiple co-morbidities. Rest of plan per hospitalist and other consultants. Thank you, JADA Montana, for allowing me to participate in this patient's care. Further recommendations will depend on the patient's clinical course. Please do not hesitate to contact me if you have any questions or concerns. This medical document was created using an electronic medical record system with [employer] dictation system. Although these documentations are being carefully reviewed, there may still be some phonetic and typographical changes. The errors are purely typographical, due to imperfection on the software program, and do not reflect any compromise in the patient's medical care. Plan discussed with: Patient, Other (BRITTNY Kelly) GLYNN DENISE MD Dec 14, 2024 22:47
[2024-12-15 11:08] LABS: Hepatitis B Surface Antigen Negative (Negative)
[2024-12-15 11:11] LABS: Hepatitis A Ab IgM Negative; Hepatitis B Core IgM Negative (Negative); Hepatitis C Antibody Negative (Negative)
--- NOTE | 2024-12-16 18:12 | DVHPN2 ---
Consult Progress Note Date Seen: Dec 14, 2024 Subjective Patient reports: Other ( no pain on his joints or back ) Objective vital signs Vital Sign Date Time Temp Pulse Resp B/P (MAP) Pulse Ox O2 Delivery O2 Flow Rate FiO2 12/14/24 17:00 97.6 78 18 104/62 (76) 97 97.6 12/14/24 08:00 Room Air* 0 21 medications Physical Exam: - General: NAD - Neck: Supple. No masses. - HEENT: PERRL. Normal lids and conjunctiva. Moist mucous membranes. Oropharynx without lesions, exudates, or excessive erythema. Normal appearance of the external aspects of the nose and ears. - Heart: Regular rhythm, normal rate. No murmur. No lower extremity edema. - Lungs: Normal respiratory effort. Clear to auscultation bilaterally. No wheezes. No crackles. - Abdomen: Soft. Non-tender. Non-distended. No masses or abdominal hernia. - MSK: No digital cyanosis. Normal strength and tone in all 4 limbs. Left knee with laceration, tenderness, warmth; no swelling, no drainage. - Skin: Warm and dry. Laceration on left knee with surrounding skin tear, tenderness, and warmth. - Neuro: Alert. No facial droop or slurred speech. Extra-ocular movements intact. Sensation intact to soft touch in all 4 limbs. - Psych: Appropriate mood. Full affect. Oriented to person, place, time, and situation. laboratory and microbiology Laboratory Tests 12/14/24 05:21 Test 12/14/24 05:21 Range/Units Serum Glucose 96 74-106 mg/dL Problem List/Assessment/Plan Problems(with codes): (1) Pneumonia due to COVID-19 virus (2) COVID-19 virus detected (3) Cervical muscle strain (4) Needs smoking cessation education (5) Elevated blood pressure reading (6) Headache (7) Cannabis abuse (8) Lumbar radiculopathy Problem List/Assessment/Plan ID Problem List: - Left knee cellulitis - Streptococcus Group A bacteremia - Cavitary lung masses - Polysubstance abuse (methamphetamine and marijuana) - Elevated troponin - Tachycardia - Acute kidney injury Assessment This is a 49 y.o. male with a past medical history of polysubstance abuse who presents with redness and swelling of the left knee for three days following a fall. He denies loss of consciousness. On admission, troponin was elevated to 1.37. He was tachycardic to the 130s. Urine drug screen was positive for amphetamines. Chest X-ray revealed multiple lung masses. He uses methamphetamine and marijuana, denies smoking tobacco, and reports occasional alcohol use. No known drug allergies. Blood cultures grew Streptococcus Group A in 1 out [address] chest showed: 1. Mass-like cavitary pneumonia in the left lung. 2. A 7 cm round mass in the left lower lung field. 3. Three additional masses concerning for pulmonary malignancy and metastatic disease. 4. Mediastinal and left lymphadenopathy indeterminate. 12/13: clinically improving on antibiotic therapy 12/14: repeat blood cultures are no growth to date , TTE shows no severe abnormalities , no sign of vegetation Plan: - STOP ceftriaxone - start oral levofloxacin 500 mg daily - Continue vancomycin for left knee cellulitis and possible pneumonia. - when patient is ready for discharge recommend oral levofloxacin 500 mg daily for an additional 14 days which will cover cavitary pneumonia and blood stream infection - Vancomycin and ceftriaxone will cover Group A Streptococcus. - Recommend screening for HIV and hepatitis. - Obtain respiratory cultures; fungal screen; cryptococcal and aspergillus serologies. - Consult pulmonology to arrange for biopsy of pulmonary masses, either outpatient if patient remains stable or inpatient bronchoscopy if necessary. - Patient will require counseling for methamphetamine abuse cessation. - Patient is not a good candidate for PICC line placement given substance abuse history. - Likely source of infection is pneumonia or open wound. - Will monitor blood cultures. - Patient will need at least 14 days of antibiotics for both pneumonia and cellulitis; can transition to oral antibiotics based on sensitivities. Isolation Precautions: standard Plan discussed with: VINEET Quiroga MD Dec 16, 2024 18:12
[2024-12-18 11:07] LABS: Aspergillus flavus Negative (Neg:<1:1); Aspergillus fumigatus Negative (Neg:<1:1); Aspergillus niger Negative (Neg:<1:1)
== END 2024-12-14 18:00 | disposition home or self-care (01) | DRG 137 ==
LOC: ER 17:05 → OVERFLOW 23:39 → TELE-EAST 12-12 02:56
PROVIDERS: ADMIT Nurse Practitioner Family; ATTEND Nurse Practitioner Family
DX: J15.69 Pneumonia due to other Gram-negative bacteria (principal); I21.A1 Myocardial infarction type 2; K76.0 Fatty (change of) liver, not elsewhere classified; J15.9 Unspecified bacterial pneumonia; E86.0 Dehydration; L03.116 Cellulitis of left lower limb; E66.9 Obesity, unspecified; F15.10 Other stimulant abuse, uncomplicated; J40 Bronchitis, not specified as acute or chronic; M54.16 Radiculopathy, lumbar region; R91.8 Other nonspecific abnormal finding of lung field; F12.10 Cannabis abuse, uncomplicated; Z68.31 Body mass index [BMI] 31.0-31.9, adult; Z79.899 Other long term (current) drug therapy
CPT/HCPCS: 36415; 71045; 71260; 73562; 73700; 80048; 80074; 80202; 80307; 80320; 81001; 83605; 83880; 84484; 85025; 86606; 86703; 87040; 87077; 87081; 87186; 93005; 93306; 97163; 99291; G0378; J1885; J2543